=== PATIENT | female | born 1970 | race Caucasian/White ===

== ENCOUNTER → 2018-06-24 15:34 | Outpatient (CLI) | payer OTHER, SELFPAY ==
[2018-06-24 18:17] LABS: AST(SGOT) 9 U/L (15-37); Alanine Aminotransfer ALT/SGPT 19 U/L (13-56); Anion Gap 9 (5-15); BUN 11 mg/dL (7-18); BUN/Creat Ratio 12.6 RATIO (10-20); Calcium,Total 8.9 mg/dL (8.5-10.1); Chloride 104 mmol/L (98-107); Cholesterol 234 mg/dL (200); Creatinine, Serum 0.87 mg/dL (0.55-1.02); EST Glomerular Filtration Rate 73 mL/min (>60); Est Glom Filt Rate - Afr Amer 88 mL/min (>60); Glucose 119 mg/dL (74-106); High Density Lipoprotein 35 mg/dL; Potassium 3.6 mmol/L (3.5-5.1); Sodium Level 138 mmol/L (136-145); Triglycerides 276 mg/dL; Very Low Density Lipoprotein 55 mg/dL (5-40)
== END ==
PROVIDERS: Family Provider Family Medicine; PCP Family Medicine; Visit Provider Family Medicine
DX: E78.00 Pure hypercholesterolemia, unspecified (principal); I10 Essential (primary) hypertension
CPT/HCPCS: 36415; 80048; 80061; 84450; 84460

== ENCOUNTER → 2018-09-18 06:59 | Outpatient (CLI) | payer OTHER, SELFPAY ==
--- NOTE | 2018-09-18 07:04 | BI_ITS ---
MAMMOGRAPHY - BILATERAL SCREENING REASON FOR EXAM: Female, 48 years old. Routine annual screening examination. PERTINENT HISTORY: Non-contributory. TECHNIQUE: Digital bilateral breast avelina (3D mammographic acquisition) in the CC and MLO projections. 2-D mediolateral oblique (MLO) and craniocaudad (CC) views of both breasts were obtained. CAD: Full Field Digital Mammography with Computer Added Detection was performed. COMPARISON: Comparison is made with prior study dated August 29 2012. FINDINGS: Breast Composition: The breasts are heterogeneously dense, which may obscure small masses. There are no dominant masses or suspicious calcifications. Stable small benign-appearing axillary lymph nodes. No other significant abnormalities are identified. There has been no significant change since the prior study. BI/SCREENING MAMM (CAD), BILAT IMPRESSION: Stable bilateral screening mammogram. Yearly follow-up mammogram recommended. (A) ASSESSMENT CATEGORY: BIRADS Category 2: Benign. A letter regarding these results will be sent to the patient by the facility within 30 days. Approximately 10% of breast cancers are not detected by mammography. A normal mammogram should not delay biopsy of a clinically suspicious abnormality. [id number] Electronically Signed: Tapan Alves MD at 9:59 EST , Service support ,
== END ==
PROVIDERS: Family Provider Family Medicine; PCP Family Medicine; Referring Provider Family Medicine; Visit Provider Family Medicine
DX: Z12.31 Encounter for screening mammogram for malignant neoplasm of breast (principal)
CPT/HCPCS: 77063; 77067

== ENCOUNTER → 2018-09-20 12:01 | Outpatient (CLI) | payer OTHER, SELFPAY ==
[2018-09-24 16:32] LABS: HPV Reflexed? NOT INDICATED
== END ==
PROVIDERS: Family Provider Family Medicine; PCP Family Medicine; Referring Provider Family Medicine; Visit Provider Family Medicine
DX: Z12.4 Encounter for screening for malignant neoplasm of cervix (principal)
CPT/HCPCS: 88175; G0145

== ENCOUNTER → 2018-09-25 12:27 | Outpatient (CLI) | payer OTHER, SELFPAY ==
--- NOTE | 2018-09-25 12:32 | US_ITS ---
STUDY: ULTRASOUND OF THE FEMALE PELVIS - COMPLETE REASON FOR EXAM: Female, 48 years old. Bleeding LMP: 09/17/18 TECHNIQUE: Transabdominal and Transvaginal TECHNICAL QUALITY: Adequate. COMPARISON: None. FINDINGS: The uterus is anteverted and is in a midline position. The uterus measures 11.8 x 6.6 x 6.0 cm. Normal uterine cervix. The endometrium measures 5.0 mm in thickness, and is hyperechoic. There is no demonstrated endometrial mass, there is a trace amount of fluid within the endometrium.. There is no demonstrated myometrial mass. I.U.D. - The patient does not have an I.U.D. The right ovary is visualized. The right ovary measures 2.1 x 2.3 x 1.3 cm. There is a 1.3 cm cyst. There is no visualized right adnexal mass or complex lesion. There is normal arterial and normal venous vascularity. The left ovary is visualized. The left ovary measures 3.9 x 3.3 x 2.9 cm. There were 2 separate ovarian cysts, larger measures 2.7 cm, smaller 2.2 cm There is normal arterial and normal venous vascularity. There is no fluid in the cul-de-sac. The bladder is sonographically normal US/Transvaginal Non- IMPRESSION: Simple ovarian cysts Trace amount of fluid within the endometrium Electronically Signed: Babatunde Caro MD at 17:13 EST , Service support ,
--- NOTE | 2018-09-25 12:32 | US_ITS ---
STUDY: ULTRASOUND OF THE FEMALE PELVIS - COMPLETE REASON FOR EXAM: Female, 48 years old. Bleeding LMP: 09/17/18 TECHNIQUE: Transabdominal and Transvaginal TECHNICAL QUALITY: Adequate. COMPARISON: None. FINDINGS: The uterus is anteverted and is in a midline position. The uterus measures 11.8 x 6.6 x 6.0 cm. Normal uterine cervix. The endometrium measures 5.0 mm in thickness, and is hyperechoic. There is no demonstrated endometrial mass, there is a trace amount of fluid within the endometrium.. There is no demonstrated myometrial mass. I.U.D. - The patient does not have an I.U.D. The right ovary is visualized. The right ovary measures 2.1 x 2.3 x 1.3 cm. There is a 1.3 cm cyst. There is no visualized right adnexal mass or complex lesion. There is normal arterial and normal venous vascularity. The left ovary is visualized. The left ovary measures 3.9 x 3.3 x 2.9 cm. There were 2 separate ovarian cysts, larger measures 2.7 cm, smaller 2.2 cm There is normal arterial and normal venous vascularity. There is no fluid in the cul-de-sac. The bladder is sonographically normal US/Pelvic (Non ) IMPRESSION: Simple ovarian cysts Trace amount of fluid within the endometrium Electronically Signed: Babatunde Caro MD at 17:13 EST , Service support ,
== END ==
PROVIDERS: Family Provider Family Medicine; PCP Family Medicine; Referring Provider Family Medicine; Visit Provider Family Medicine
DX: N93.9 Abnormal uterine and vaginal bleeding, unspecified (principal)
CPT/HCPCS: 76830; 76856

== ENCOUNTER → 2019-12-31 09:44 | Outpatient (CLI) | payer OTHER, SELFPAY ==
[2016-04-10 19:39] VITALS: BMI 35.6
[2019-12-31 12:47] LABS: Anion Gap 7 (5-15); BUN 9 mg/dL (7-18); BUN/Creat Ratio 11.1 RATIO (10-20); Calcium,Total 8.9 mg/dL (8.5-10.1); Chloride 106 mmol/L (98-107); Cholesterol 203 mg/dL (200); Creatinine, Serum 0.81 mg/dL (0.55-1.02); EST Glomerular Filtration Rate 79 mL/min (>60); Est Glom Filt Rate - Afr Amer 95 mL/min (>60); Glucose 150 mg/dL (74-106); High Density Lipoprotein 36 mg/dL; Potassium 3.8 mmol/L (3.5-5.1); Sodium Level 139 mmol/L (136-145); Triglycerides 163 mg/dL; Very Low Density Lipoprotein 33 mg/dL (5-40)
== END ==
PROVIDERS: PCP Family Medicine; Referring Provider Family Medicine; Visit Provider Family Medicine
DX: I10 Essential (primary) hypertension (principal)
CPT/HCPCS: 36415; 80048; 80061

== ENCOUNTER → 2020-06-22 11:31 | Outpatient (CLI) | payer OTHER, SELFPAY ==
[2016-04-10 19:39] VITALS: BMI 35.6
[2020-06-22 15:32] LABS: Anion Gap 5 (5-15); BUN 12 mg/dL (7-18); BUN/Creat Ratio 14.1 RATIO (10-20); Calcium,Total 9.3 mg/dL (8.5-10.1); Chloride 106 mmol/L (98-107); Creatinine, Serum 0.85 mg/dL (0.55-1.02); EST Glomerular Filtration Rate 75 mL/min (>60); Est Glom Filt Rate - Afr Amer 90 mL/min (>60); Glucose 156 mg/dL (74-106); Sodium Level 136 mmol/L (136-145)
[2020-06-25 16:08] LABS: Age Gdln ACOG Testing 30-65 (.)
[2020-06-25 17:40] LABS: HPV APTIMA, High Risk Negative (Negative); HPV Reflexed? YES, CHARGE PATIENT
== END ==
PROVIDERS: PCP Family Medicine; Referring Provider Family Medicine; Visit Provider Family Medicine
DX: I10 Essential (primary) hypertension (principal); Z01.419 Encounter for gynecological examination (general) (routine) without abnormal findings
CPT/HCPCS: 36415; 80048; 87624; 88175; G0145

== ENCOUNTER → 2020-07-21 08:17 | Outpatient (CLI) | payer OTHER, SELFPAY ==
--- NOTE | 2020-07-21 08:20 | BI_ITS ---
MAMMOGRAPHY - BILATERAL SCREENING REASON FOR EXAM: Female, 50 years old. Routine annual screening examination. PERTINENT HISTORY: Non-contributory. TECHNIQUE: Digital bilateral breast valentina (3D mammographic acquisition) in the CC and MLO projections. 2-D mediolateral oblique (MLO) and craniocaudad (CC) views of both breasts were obtained. CAD: Full Field Digital Mammography with Computer Added Detection was performed. COMPARISON: Comparison is made with prior study dated 09/18/2018 and 08/29/2012. FINDINGS: Breast Composition: The breasts are heterogeneously dense, which may obscure small masses. There are no dominant masses or suspicious calcifications. Stable small benign-appearing bilateral axillary lymph nodes. No other significant abnormalities are identified. There has been no significant change since the prior study. BI/SCREEN MAMM (CAD) W/VALENTINA BILAT IMPRESSION: Stable bilateral screening mammogram. Yearly follow-up mammogram recommended. (A) ASSESSMENT CATEGORY: BIRADS Category 2: Benign. A letter regarding these results will be sent to the patient by the facility within 30 days. Approximately 10% of breast cancers are not detected by mammography. A normal mammogram should not delay biopsy of a clinically suspicious abnormality. [id number] Electronically Signed: Tapan Alves, at 10:09 EST , Service support ,
== END ==
PROVIDERS: PCP Family Medicine; Referring Provider Family Medicine; Visit Provider Family Medicine
DX: Z12.31 Encounter for screening mammogram for malignant neoplasm of breast (principal)
CPT/HCPCS: 77063; 77067

== ENCOUNTER → 2020-09-13 08:28 | Outpatient (CLI) | payer OTHER, SELFPAY ==
--- NOTE | 2020-09-13 08:32 | US_ITS ---
STUDY: ABDOMINAL ULTRASOUND - RIGHT UPPER QUADRANT REASON FOR VISIT: Female, 50 years old ruq pain TECHNIQUE: Ultrasound evaluation of the right upper quadrant was performed with real-time and static sanchez-scale imaging. TECHNICAL QUALITY: Adequate. COMPARISON: None. FINDINGS: Liver: The liver measures 16.4 cm. There is increased echogenicity consistent with fatty infiltration. The bile ducts are within normal limits. There is hepatic color flow. The direction of portal flow is hepatopetal. There is no demonstrated mass lesion. Gallbladder: Normal distended gallbladder. The gallbladder wall measures 3.0 mm. There is a negative sonographic Vera''s sign. There is no pericholecystic fluid. There are multiple echogenic structures within the gallbladder, consistent with multiple gallstones. There is a 1.6 cm stone in the neck of the gallbladder. Common Bile Duct (C.B.D.): The common bile duct measures 6 mm. Pancreas: Normal size of the head, body and tail of the pancreas. There is normal echogenicity of the pancreas. There is no demonstrated pancreatic mass or cyst. Right Kidney: Normal size of the right kidney. The right kidney measures 10.4 cm x 5.4 cm x 5.6 cm. Normal renal cortex. The right cortex measures 1.7 cm. There is no demonstrated renal mass or cyst. There is no right hydronephrosis. US/Abdomen Limited IMPRESSION: Multiple gallstones. Fatty infiltration of the liver. Electronically Signed: Tapan Alves MD at 10:10 EST , Service support ,
== END ==
PROVIDERS: PCP Family Medicine; Referring Provider Family Medicine; Visit Provider Family Medicine
DX: R10.9 Unspecified abdominal pain (principal)
CPT/HCPCS: 76705

== ENCOUNTER 2020-09-22 05:21 | Day surgery (SDC) | payer OTHER, SELFPAY ==
[2020-09-15 15:05] VITALS: BMI 36.6
--- NOTE | 2020-09-20 13:07 | EKG12_ITS ---
Test Reason : PREOP Blood Pressure : / mmHG Vent. Rate : 077 BPM Atrial Rate : 077 BPM P-R Int : 140 ms QRS Dur : 088 ms QT Int : 384 ms P-R-T Axes : 051 061 045 degrees QTc Int : 434 ms Normal sinus rhythm Normal ECG Confirmed by MEGAN FLYNN, LEYLA ([id number]), editorial project manager MATT BENJAMIN ([id number]) on 09/21/2020 8:15:06 AM Referred By: Reese Swann Confirmed By:LEYLA GUZMAN MD
[2020-09-20 14:31] LABS: Anion Gap 8 (5-15); BUN 10 mg/dL (7-18); BUN/Creat Ratio 10.8 RATIO (10-20); Calcium,Total 9.7 mg/dL (8.5-10.1); Chloride 104 mmol/L (98-107); Creatinine, Serum 0.93 mg/dL (0.55-1.02); EST Glomerular Filtration Rate 67 mL/min (>60); Est Glom Filt Rate - Afr Amer 82 mL/min (>60); Glucose 172 mg/dL (74-106); Sodium Level 137 mmol/L (136-145)
[2020-09-22] VITALS (9 sets, daily range): BP systolic 137–162; BP diastolic 81–95; PULSE 70–94; RESP 16–18; TEMP 36.4–37.7; O2SAT 92–99; BMI 36.7
[2020-09-22] MEDS: Lactated Ringers 1,000 ML 100 ML IV ×2 (06:00→08:30)
[2020-09-22 06:30] LABS: Internal QC Validated? YES +Cl - CLEAR BKGD; Pregnancy, Urine Negative Negative
--- NOTE | 2020-09-22 06:52 | PCM.HP.BLA ---
Problem List (1) Cholelithiasis with chronic cholecystitis Status: Chronic Qualifiers: History and Physical Date of Admission: 09/22/20 Intake Visit Reasons: Gall Stones/Ultrasound 09/13 [facility] Chief Complaint: Gallstones Mapping Specialist Required: No Is patient in pain?: No Allergies No Known Allergies Allergy (Verified 09/15/20 15:05) Medications lisinopril 10 mg-hydrochlorothiazide 12.5 mg tablet 1 tab PO DAILY 09/15/20 [History Confirmed 09/15/20] potassium chloride 10 mEq capsule,extended release 10 meq PO DAILY 09/15/20 [History Confirmed 09/15/20] [facility] Medical History (Updated 09/15/20 @ 15:[address] Reese Swann MD) Cholelithiasis with chronic cholecystitis (Chronic) Constipation (Acute) GERD (gastroesophageal reflux disease) (Acute) Gallstones (Acute) Hemorrhoids (Acute) History of back problems (Acute) Nausea and vomiting (Acute) RUQ pain (Acute) Hypertension (Chronic) Surgical History (Updated 09/15/20 @ 15:03 by Uyen June) No history of previous surgery (Acute) Family History (Updated 09/15/20 @ 15:04 by Uyen June) Daughter Asthma Uncle Colon cancer Sister Diabetes Social History (Updated 09/15/20 @ 15:[address] Reese Swann MD) Smoking Status: Never smoker alcohol intake: never substance use type: does not use HPI HPI HPI: LIANG QUIÑONES, is a 50 F who presents to the office today for surgical consultation regarding what was felt to be likely symptomatic gallbladder disease secondary to gallstones. The patient is referred by her primary care physician Dr. Chelsi Matson and a written copy of my surgical consult and recommendations will be returned to her. 50-year-old female. She was visiting family in [place] and ate typical food outside of her norm. This included some extra fatty and rich foods. She had an episode of right upper quadrant discomfort bloating nausea and then finally felt better when she vomited. She has had some lingering discomfort since that time. She went to see her primary care physician Dr. Chelsi Matson and concerns were over the possibility of gallbladder disease so on September 13, 2020 gallbladder ultrasound was obtained at the [facility]. Multiple gallstones were identified. There was felt to be a 1.6 cm stone in the neck of the gallbladder. No pericholecystic fluid. The common bile duct was normal at 6 mm. The patient's not had any previous abdominal surgery. No otherwise change in bowel habits. She works at home. She does have a child who attends [facility] HPI HPI: LIANG QUIÑONES, is a 50 F who presents to the office today for ROS General General: No weight change, appetite, fatigue, colon cancer, breast cancer or weakness HEENT HEENT: No difficulty swallowing, eye injury, eye surgery, swollen glands or hoarseness Endo Endocrine: No thyroid disease, diabetes mellitus, thyroid cancer, Hair loss, heat intolerance or cold intolerance Skin Skin: No rash or changing moles Breast Breast: No left breast lump, right breast lump, nipple discharge, breast pain, abnormal mammogram, abnormal US or breast enlargement Musc Musculoskeletal: Yes back problems; no arthritis, rheumatoid arthritis, gout or joint pain Cardio Cardiovascular: Yes high blood pressure; no murmur, pacemaker, heart disease, atrial fibrillation, heart attack, heart stent, palpitations, shortness of breat with exertion or chest pain Psych Psychiatric: No depression, anxiety or hearing voices Resp Respiratory: No shortness of breath, No sleep apnea, No cough, No COPD, No asthma, No emphysema, No wheezing Gastro Gastrointestinal: Yes abdominal pain, Yes nausea or vomiting, No diarrhea, Yes constipation, No blood in stool, Yes acid reflux, Yes hemorrhoids, No ulcers, Yes gallbladder problem, No black,tarry stools Rigoberto Hematologic: No blood thinners, No blood disorders, No bleeding, No anemia, No blood clots Neuro Neurologic: No system reviewed and no additional complaints, except as docu, No as per HPI, No abnormal walking, No abnormal hearing, No abnormal movements, No abnormal speech, No behavioral changes, No burning sensations, No confusion, No seizure-like activity, No unsteadiness, No dizziness, No localized weakness, No frequent falls, No headache(s), No lack of coordination, No loss of vision, No memory loss, No numbness, No other visual disturbances, No radiating pain, No restless legs, No sensory deficit, No fainting, No tingling, No tremor(s), No weakness, No other Exam Const General: cooperative, healthy appearing Nutritional Appearance: average body habitus Orientation: alert, awake [facility] Head: normal to inspection Chest Chest palpation & inspection: normal inspection of the chest Breast Palpation: No nipple discharge Resp Effort & Inspection: normal respiratory effort Auscultation: clear to auscultation bilaterally Cardio Rate: regular rate Rhythm: regular rhythm Heart Sounds: no murmurs GI Palpation: soft, no hepatosplenomegaly Musc Cervical Spine: normal cervical lordosis Neuro General: alert, awake Extrem General: no calf tenderness Psych Thought Process: normal Assessment & Plan Problems 1. Calculus of gallbladder with chronic cholecystitis without obstruction K80.10 Plan 50-year-old female with findings very much consistent with chronic cholecystitis cholelithiasis. I am recommending to her a laparoscopic cholecystectomy with selective cholangiography. I have discussed the technique, benefit, risk, alternatives. She has had an opportunity to ask and have questions answered. At this point recommend scheduling proceeding at her discretion. I very much appreciate the kind opportunity of assisting with her surgical care. Copy: Dr Chelsi Swann M.D., F.A.C.S. Coding Level of Care Code 09641 Diagnoses Calculus of gallbladder with chronic cholecystitis without obstruction K80.10 ??Cholelithiasis location: gallbladder ??Biliary obstruction: without biliary obstruction 09/15/20 1539 <Electronically signed by Reese Swann MD> Date I have re-examined the patient. There are no clinical changes since date of exam. Procedure Criteria Procedure Type: Elective COVID Risk Discussion: The surgeon/proceduralist and patient have discussed in detail the risk of exposure to and/or potential harm posed by the COVID-19 virus with having a surgery/procedure at this time versus the risk of delaying the surgery/procedure. It is not possible to know either the risk of delaying the surgery or procedure or chance of getting an infection with perfect accuracy, but a joint decision was made between the patient and the surgeon/proceduralist to proceed at this time with the scheduled surgery/procedure as indicated on the consent form.
--- NOTE | 2020-09-22 06:54 | DCINST_ITS ---
Discharge Diet: Light diet - advance as tolerated - if you have questions about your diet instructions, please talk to you doctor. Discharge Activity: May Not Drive - for 3-5 days or while taking narcotic pain medicine. May shower in (days): 1 Lifting Restrictions: 10 pounds Call your doctor if your incision/area has: Continuous Slow Oozing, Sudden Increased Bleeding, Increased Pain/ Swelling, Increased Redness, Foul Smelling Discharge Call your doctor if you observe: Fever of 101 or Higher Suture Line Care: Avoid Pulling/Pushing, Avoid Pinching/Bending Additional Dressing/Incision Instructions:: Change or remove dressing in 4 days. Leave steri-strips in place for 1 week. Allergies/Adverse Reactions: Allergies No Known Allergies Allergy (Verified 09/22/20 05:53) Medications to take at Discharge lisinopril 10 mg-hydrochlorothiazide 12.5 mg tablet 1 tab PO DAILY 09/15/20 potassium chloride 10 mEq capsule,extended release 10 meq PO DAILY 09/15/20 Primary Care Physician: Chelsi Matson MD [Primary Care Provider] - Test Results: Test results from this visit will be discussed in further detail at your follow- up appointment, if applicable. Please Follow Up With: Reese Swann MD - [phone] When: Call for appt. May be phone, virtual, or on-site
[2020-09-22] MEDS: Cefazolin 2 GM in 0.9% Normal Saline 100 ML IV (07:29)
--- NOTE | 2020-09-22 07:30 | RAD_ITS ---
STUDY: INTRAOPERATIVE CHOLANGIOGRAM. REASON FOR EXAM: Female, 50 years old. LAP ION WITH INTRAOPERATIVE CHOLANGIOGRAMS FLUOROSCOPY TIME (if supplied): ( 13.5 seconds ) minutes/seconds. A cine loop of 89 images were submitted. TECHNIQUE: Intraoperative cholangiogram was performed by the surgeon. Imaging was submitted. COMPARISON: None. FINDINGS: The visualized intrahepatic biliary ducts are unremarkable. The common bile duct is not dilated. No intraluminal filling defect is seen. Free flow of contrast is seen into the duodenum. RAD/Cholangiogram/ O R,Initial IMPRESSION: Unremarkable intraoperative cholangiogram. Electronically Signed: Tapan Alves MD at 9:14 EST , Service support ,
--- NOTE | 2020-09-22 07:30 | GALL_PTH ---
PATIENT: LIANG QUIÑONES [place] [facility] [id number] AGE/SX: 50/F ROOM: RE09/22/[address]: Dr. Reese Swann MD : 1970 BED: DIS: 09/22/2020 SPEC #: [id number] RECD: 09/22/20 09:13 STATUS: RUBY TRINIDAD #: [id number] CANDIS: 09/22/20 07:[address]: Reese Swann DEPT: SURGICAL PATHOLOGY RECD BY: Alesia Mendez ENTERED: 09/22/20 13:32 SP TYPE: SANYA MARCANO DR: Dr. Chelsi Matson MD Tissues: Gallbladder, NOS Procedures: Surgery Specimen Level III HEADER OPERATION: Laparoscopic cholecystectomy with IOC PRE-OP DIAGNOSIS: Cholelithiasis with chronic cholecystitis TISSUE SUBMITTED: Gallbladder MICROSCOPIC DIAGNOSIS Gallbladder, cholecystectomy: Chronic cholecystitis and cholelithiasis. AM:charmaine 09/23/2020 MICROSCOPIC DESCRIPTION Slides are reviewed. GROSS DESCRIPTION Received is one container labeled with the patient's name and designated gallbladder. The specimen consists of a gallbladder measuring 10.6 x 3 x 3 cm. The external surface is smooth and glistening. Focally, it is granular, hemorrhagic and contains cautery artifact. The lumen of the gallbladder contains yellow-green mucoid bile and a single, ovoid crystalline black-green calculus measuring 3.5 cm in greatest dimension. The mucosa is bile-stained and without any mass lesions. The gallbladder wall averages 0.4 cm in thickness and is free of mass lesions. Gizzard Skin Remover sections of the gallbladder and the cystic duct at margin of resection are submitted in one cassette. / AM:charmaine 09/22/20 TC:3 CPT: 48607
[2020-09-22] MEDS: Bupivacaine Mpf 0.5% 30 ML VIAL (08:20)
--- NOTE | 2020-09-22 08:34 | OP.PCM_ITS ---
Problem List (1) Cholelithiasis with chronic cholecystitis Status: Chronic Qualifiers: Report of Operation Date of Procedure: 09/22/20 Pre-Operative Diagnosis: Chronic cholecystitis cholelithiasis Post-Operative Diagnosis: Same Surgery/Procedure Performed:: Laparoscopic cholecystectomy with cholangiograms Description of Surgical Findings:: Timeout and informed consent was obtained. 50-year-old female was taken operating place upon the table underwent general endotracheal intubation anesthesia. Ancef 2 g given intravenously preoperatively. The abdomen st erilely prepped and draped. 0.5% Marcaine was used as local anesthetic. Throughout the procedure total 30 cc was used. Skin sites were preanesthetized. A vertical infraumbilical incision was created holding sutures of 0 Vicryl placed varies needle inserted saline drop test performed the abdomen was insufflated with CO2 to a pressure of 10 mmHg pressure. 12 mm trocar inserted. 10 mm laparoscope inserted. Inspection revealed somewhat enlarged uterus. There were adhesions of omentum to the gallbladder. No other superficial abnormalities. There is some fatty change of the liver. 5 mm trochars were placed in the mid abdomen epigastric area and right upper quadrant. The gallbladder was distracted electrocautery was used to transect the omentum free from the mid section of the gallbladder. Blunt dissection was tedious elucidate the infundibular area. The gallbladder is rather adherent to the proper hepatic duct. This was dissected free. Hemolock clips were used for hemostasis. The critical view was achieved. The cystic duct cystic artery identified. The liver plate identified. A Hem-o-phi clip was placed on the cystic duct incision made in the cystic duct and through a 14-gauge Angiocath a cholangiogram catheter was inserted. Fluoroscopically control cholangiograms were obtained demonstrating normal ductal anatomy. The cholangiogram catheter was removed hemolock clip was placed on the cystic duct stump prior to transecting it. The cystic artery was clipped proximally and distally with a hemolock clip. The gallbladder was tediously dissected free from the liver bed with the hook cautery electrocautery device. The gallbladder was released placed in a retrieval bag there was no stone or bile spillage. Liver bed area was inspected additional electrocautery was used and I placed a piece of fibrillar in the base. The right upper quadrant was irrigated and aspirated free of excess fluid. The gallbladder was then grasped with the umbilicus. The abdomen was allowed to deflate through an antiviral valve. The gallbladder was removed there is a very large stones of the fascial incision had to be enlarged for removal. The fascia at the umbilicus was approximated with 2 [id number] sutures of 0 Vicryl. Skin edges approximated opted for Monocryl subdermal stitches. Steri- Strips Telfa OpSite dressings applied. Sponge and instrument and needle counts were reported to the surgeon to be correct. Blood loss minimal. Specimens gallbladder. Drains none. Blood loss minimal. The patient was taken to the recovery area in satisfactory edition without apparent complication. Reese Swann M.D., F.A.C.S. Type of Anesthesia:: General Anesthesiologist: Casey Boyer
[2020-09-22] MEDS: HYDROcodone Bitartrate/Apap 5/325 Tablet PO (11:10)
== END 2020-09-22 12:31 | disposition home or self-care (01) ==
LOC: SDC 05:21 → AC 05:21
PROVIDERS: Anesthesiology; PCP Family Medicine; Referring Provider Surgery; Visit Provider Surgery
PROC: (CPT 47610; principal; 2020-09-22 07:20)
DX: K80.10 Calculus of gallbladder with chronic cholecystitis without obstruction (principal); I10 Essential (primary) hypertension
CPT/HCPCS: 47563; 36415; 74300; 76000; 80048; 81025; 87426; 88304; 93005; C9803; J7120; J2405

== ENCOUNTER → 2021-08-10 15:14 | Outpatient (CLI) | payer OTHER, SELFPAY | PROVIDERS: PCP Family Medicine; Visit Provider Family Medicine | DX: U07.1 COVID-19 (principal) | CPT/HCPCS: 87635; U0005; U0003 ==

== ENCOUNTER → 2022-04-05 | Outpatient (CLI) | payer OTHER, SELFPAY ==
[2022-04-05 12:53] LABS: AST(SGOT) 10 U/L (15-37); Alanine Aminotransfer ALT/SGPT 20 U/L (13-56); Anion Gap 7 (5-15); BUN 11 mg/dL (7-18); BUN/Creat Ratio 14.2 RATIO (10-20); Calcium,Total 9.5 mg/dL (8.5-10.1); Chloride 103 mmol/L (98-107); Cholesterol 139 mg/dL (200); Creatinine, Serum 0.77 mg/dL (0.55-1.02); EST Glomerular Filtration Rate 83 mL/min (>60); Est Glom Filt Rate - Afr Amer 100 mL/min (>60); Glucose 256 mg/dL (74-106); High Density Lipoprotein 36 mg/dL; Potassium 3.8 mmol/L (3.5-5.1); Sodium Level 136 mmol/L (136-145); Triglycerides 279 mg/dL; Very Low Density Lipoprotein 56 mg/dL (5-40)
[2022-04-05 13:35] LABS: Microalbumin,Random Urine 44.6 mg/L (NO RANGE EST.); Microalbumin:Creatinine Ratio 15.8 mg/g CRE (<30 mg/g CRE)
== END | disposition home or self-care (01) ==
LOC: MFPLAB 10:42
PROVIDERS: PCP Family Medicine; Referring Provider Family Medicine; Visit Provider Family Medicine
DX: I10 Essential (primary) hypertension (principal); E78.00 Pure hypercholesterolemia, unspecified
CPT/HCPCS: 36415; 80048; 80061; 82043; 82570; 84450; 84460

== ENCOUNTER → 2022-04-24 | Outpatient (CLI) | payer OTHER, SELFPAY ==
--- NOTE | 2022-04-24 12:30 | BI_ITS ---
MAMMOGRAPHY - BILATERAL SCREENING REASON FOR EXAM: Female, 51 years old. Routine annual screening examination. PERTINENT HISTORY: Non-contributory. TECHNIQUE: Digital bilateral breast valentina (3D mammographic acquisition) in the CC and MLO projections. 2-D mediolateral oblique (MLO) and craniocaudad (CC) views of both breasts were obtained. CAD: Full Field Digital Mammography with Computer Added Detection was performed. COMPARISON: Comparison is made with prior study dated 07/21/2020 and 09/18/2018. FINDINGS: Breast Composition: The breasts are heterogeneously dense, which may obscure small masses. There are no dominant masses or suspicious calcifications. Stable benign-appearing bilateral axillary lymph nodes. No other significant abnormalities are identified. There has been no significant change since the prior study. BI/SCRN MAMM (CAD)W/VALENTINA BILAT IMPRESSION: Stable bilateral screening mammogram. Yearly follow-up mammogram recommended. (A) ASSESSMENT CATEGORY: BIRADS Category 2: Benign. A letter regarding these results will be sent to the patient by the facility within 30 days. Approximately 10% of breast cancers are not detected by mammography. A normal mammogram should not delay biopsy of a clinically suspicious abnormality. [id number] Electronically Signed: Tapan Alves MD at 13:37 EDT ,
== END | disposition home or self-care (01) ==
LOC: OPBI 12:29
PROVIDERS: PCP Family Medicine; Visit Provider Family Medicine
DX: Z12.31 Encounter for screening mammogram for malignant neoplasm of breast (principal)
CPT/HCPCS: 77063; 77067

== ENCOUNTER → 2022-09-20 | Outpatient (CLI) | payer OTHER, SELFPAY | END | disposition home or self-care (01) | LOC: LABSPEC 10:27 | PROVIDERS: PCP Family Medicine; Visit Provider Family Medicine | DX: S39.012A Strain of muscle, fascia and tendon of lower back, initial encounter (principal) | CPT/HCPCS: 87077; 87086; 87088; 87186 ==

== ENCOUNTER 2023-03-12 17:30 | Outpatient (RCR) | payer SELFPAY | END 2023-03-12 23:59 | LOC: NS 17:30 | PROVIDERS: PCP Family Medicine | DX: Z71.3 Dietary counseling and surveillance (principal); E11.9 Type 2 diabetes mellitus without complications ==

== ENCOUNTER → 2023-04-27 | Outpatient (CLI) | payer OTHER, SELFPAY ==
[2023-05-03 11:09] LABS: HPV APTIMA, High Risk Negative (Negative)
[2023-05-03 21:44] LABS: HPV Reflexed? YES, CHARGE PATIENT
== END | disposition home or self-care (01) ==
PROVIDERS: PCP Family Medicine; Visit Provider Family Medicine
DX: Z12.4 Encounter for screening for malignant neoplasm of cervix (principal)
CPT/HCPCS: 87624; 88175; G0145

== ENCOUNTER → 2023-07-03 | Outpatient (CLI) | payer OTHER, SELFPAY ==
--- NOTE | 2023-07-03 07:43 | BI_ITS ---
MAMMOGRAPHY - BILATERAL SCREENING REASON FOR EXAM: Female, 53 years old. Routine annual screening examination. PERTINENT HISTORY: Non-contributory. TECHNIQUE: Digital bilateral breast valentina (3D mammographic acquisition) in the CC and MLO projections. 2-D mediolateral oblique (MLO) and craniocaudad (CC) views of both breasts were obtained. CAD: Full Field Digital Mammography with Computer Added Detection was performed. COMPARISON: Comparison is made with prior study dated April 24, 2022 and July 21, 2020. FINDINGS: Breast Composition: The breasts are extremely dense, which lowers the sensitivity of mammography. There is a 3.2 cm x 2.7 cm well-defined nodular density in the upper lateral aspect of the right breast. Correlation with ultrasound is recommended. Stable small benign-appearing bilateral axillary lymph nodes. No other significant abnormalities are identified. BI/SCRN MAMM (CAD)W/VALENTINA BILAT IMPRESSION: Well-defined nodule in the left breast as described. Targeted correlation with ultrasound is recommended for further evaluation. ASSESSMENT CATEGORY: BIRADS Category 0: Incomplete. Need additional imaging evaluation. A letter regarding these results will be sent to the patient by the facility within 30 days. Approximately 10% of breast cancers are not detected by mammography. A normal mammogram should not delay biopsy of a clinically suspicious abnormality. [id number] Electronically Signed: Tapan Alves MD at 11:02 EST ,
== END | disposition home or self-care (01) ==
LOC: OPBI 07:43
PROVIDERS: PCP Family Medicine; Visit Provider Family Medicine
DX: Z12.31 Encounter for screening mammogram for malignant neoplasm of breast (principal)
CPT/HCPCS: 77063; 77067

== ENCOUNTER → 2023-07-12 | Outpatient (CLI) | payer OTHER, SELFPAY ==
--- NOTE | 2023-07-12 09:13 | US_ITS ---
STUDY: ULTRASOUND BREAST - RIGHT REASON FOR EXAM: Female, 53 years old. Abnormal screening mammogram. TECHNIQUE: Axial and longitudinal images of the RIGHT breast were performed with a high resolution ultrasound transducer. # OF IMAGES: 76 COMPARISON: Comparison is made with prior mammogram dated July 03, 2023. FINDINGS: RIGHT Breast: The lateral half of the right breast as well as the upper medial portion of the right breast was examined with ultrasound. Dense fibroglandular tissue. Several cysts are seen. The largest measures 1.3 cm x 1.3 cm x 0.6 cm. At the 9:00 position breast at 6 cm from the nipple, there is an irregular hypoechoic density with posterior shadowing. The margins are ill-defined. Biopsy is recommended. US/Breast Limited Unilateral IMPRESSION: Dense fibroglandular tissue. Small cysts are seen. Irregular hypodensity with some shadowing at the 9:00 position of the breast at 6 cm from the nipple. Biopsy is recommended. ASSESSMENT CATEGORY: BIRADS Category 4: Suspicious - Biopsy Should Be Considered. A letter regarding these results will be sent to the patient by the facility within 30 days. Electronically Signed: Tapan Alves MD at 8:45 EST ,
== END | disposition home or self-care (01) ==
PROVIDERS: PCP Family Medicine; Referring Provider Family Medicine; Visit Provider Family Medicine
DX: N63.11 Unspecified lump in the right breast, upper outer quadrant (principal)
CPT/HCPCS: 76642

== ENCOUNTER → 2023-08-09 | Outpatient (CLI) | payer OTHER, SELFPAY ==
--- NOTE | 2023-08-09 08:05 | MRI_ITS ---
STUDY: BILATERAL BREAST MR WITHOUT AND WITH CONTRAST REASON FOR EXAM: Female, 53 years old. Workup of irregular hypoechoic density in right breast by ultrasound. TECHNIQUE: Multi-sequence multi-echo imaging of both breasts was performed with a dedicated breast coil. T1-weighted and T2-weighted images were performed before the administration of contrast. T1-weighted images were also performed after the intravenous administration of 17 mL of Clariscan contrast. COMPARISON: Bilateral mammogram dated July 06, 2023 and right breast ultrasound dated July 12, 2023. FINDINGS: RIGHT BREAST: Heterogeneously dense fibroglandular tissue with moderate to marked background enhancement which may obscure small masses. No abnormal enhancing masses or areas of non-mass enhancement in the right breast. Specifically, no dominant enhancing mass at the 9:00 position of the right breast 6 cm from the nipple. LEFT BREAST: Heterogeneously dense fibroglandular tissue with moderate to marked background enhancement which may obscure small masses. No abnormal enhancing masses or areas of non-mass enhancement in the left breast. No enlarged or abnormal lymph nodes. No abnormality in the visualized regions of the chest or liver. MRI/Breast Bilateral W/O and W IMPRESSION: Heterogeneously dense fibroglandular tissue with moderate to marked background enhancement which may obscure small masses. No dominant enhancing mass at the 9:00 position of the right breast. Given the ultrasound findings, a six-month follow-up right breast ultrasound with particular attention to the 9:00 position 6 cm from the nipple is recommended. CATEGORY: BIRADS Category 3: Probably Benign - Short-Interval Follow-up Suggested. A letter regarding these results will be sent to the patient by the facility within 30 days. Electronically Signed: Prince Patten MD at 13:08 EST ,
[2023-08-09 11:00] LABS: CREATININE FINGERSTICK < 1.0 mg/dL (0.55-1.02); EGFR FINGERSTICK > 60.0000 mL/min (>60)
== END | disposition home or self-care (01) ==
PROVIDERS: PCP Family Medicine; Referring Provider Surgery; Visit Provider Surgery
DX: R92.8 Other abnormal and inconclusive findings on diagnostic imaging of breast (principal)
CPT/HCPCS: 77049; A9575; A4216; C8908

== ENCOUNTER → 2023-12-11 | Outpatient (CLI) | payer OTHER, SELFPAY ==
[2023-12-11 18:08] LABS: Protein, Urine (Random) 14.1 mg/dL (<11.9); Protein:Creat Ratio 82 mg/g CRE (0-200)
[2023-12-11 18:23] LABS: Hemoglobin A1c 6.8 % (3.8-5.6)
[2023-12-11 18:33] LABS: Anion Gap 7 (5-15); BUN 11 mg/dL (7-18); BUN/Creat Ratio 12.4 RATIO (10-20); Calcium,Total 9.7 mg/dL (8.5-10.1); Chloride 106 mmol/L (98-107); Cholesterol 170 mg/dL (200); Creatinine, Serum 0.89 mg/dL (0.55-1.02); EST Glomerular Filtration Rate 70 mL/min (>60); Est Glom Filt Rate - Afr Amer 85 mL/min (>60); Glucose 118 mg/dL (74-106); High Density Lipoprotein 41 mg/dL; Potassium 3.8 mmol/L (3.5-5.1); Sodium Level 138 mmol/L (136-145); Triglycerides 163 mg/dL; Very Low Density Lipoprotein 33 mg/dL (5-40)
== END | disposition home or self-care (01) ==
LOC: MFPLAB 15:27
PROVIDERS: PCP Family Medicine; Visit Provider Family Medicine
DX: E66.01 Morbid (severe) obesity due to excess calories (principal); E11.59 Type 2 diabetes mellitus with other circulatory complications; E11.69 Type 2 diabetes mellitus with other specified complication
CPT/HCPCS: 36415; 80048; 80061; 82570; 83036; 84156

== ENCOUNTER → 2024-02-28 | Outpatient (CLI) | payer OTHER, SELFPAY ==
--- NOTE | 2024-02-28 08:01 | US_ITS ---
STUDY: ULTRASOUND BREAST - RIGHT REASON FOR EXAM: Female, 53 years old. Six-month follow-up right breast ultrasound. TECHNIQUE: Axial and longitudinal images of the RIGHT breast were performed with a high resolution ultrasound transducer. # OF IMAGES: 49 COMPARISON: Comparison is made with prior mammogram dated July 03, 2023 and prior MRI of the breast dated August 09, 2023. FINDINGS: RIGHT Breast: The upper outer quadrant of the breast was examined with ultrasound. There is a 1.6 cm x 1.5 cm x 0.8 cm cyst at the 10:00 position of the breast at 4 cm from the nipple. Once again, focal area of the decreased attenuation within the posterior shadowing and possible calcifications at the 9:00 position of the breast at 6 cm from nipple. Biopsy recommended . US/Breast Limited Unilateral IMPRESSION: 1.6 cm x 1.5 cm x 0.8 cm cyst at the 10:00 position in the breast at 4 cm from nipple. Persistent heterogeneous appearance at 10:00 position breast is 6 cm from nipple. Biopsy recommended. ASSESSMENT CATEGORY: BIRADS Category 4: Suspicious - Biopsy Should Be Considered. A letter regarding these results will be sent to the patient by the facility within 30 days. Electronically Signed: Tapan Alves MD at 15:23 EDT ,
== END | disposition home or self-care (01) ==
PROVIDERS: PCP Family Medicine; Referring Provider Surgery; Visit Provider Surgery
DX: R92.8 Other abnormal and inconclusive findings on diagnostic imaging of breast (principal)
CPT/HCPCS: 76642

== ENCOUNTER → 2024-03-27 | Outpatient (CLI) | payer OTHER, SELFPAY ==
--- NOTE | 2024-03-27 11:59 | US_ITS ---
STUDY: ULTRASOUND BREAST - RIGHT REASON FOR EXAM: Female, 53 years old. Patient was scheduled for biopsy. TECHNIQUE: Axial and longitudinal images of the RIGHT breast were performed with a high resolution ultrasound transducer. # OF IMAGES: 7 COMPARISON: None. FINDINGS: RIGHT Breast: The lateral aspect of the right breast was examined with ultrasound. Heterogeneously dense fibroglandular tissue. No suspicious nodules seen for biopsy at this time. US/Breast Limited Unilateral IMPRESSION: No suspicious nodule seen at this time for biopsy. ASSESSMENT CATEGORY: BIRADS Category 2: Benign. A letter regarding these results will be sent to the patient by the facility within 30 days. Electronically Signed: Tapan Alves MD at 14:17 EDT ,
== END | disposition home or self-care (01) ==
PROVIDERS: PCP Family Medicine; Referring Provider Surgery; Visit Provider Surgery
DX: R92.8 Other abnormal and inconclusive findings on diagnostic imaging of breast (principal)
CPT/HCPCS: 76642

== ENCOUNTER → 2024-10-24 | Outpatient (CLI) | payer OTHER, SELFPAY ==
[2024-10-24 14:17] LABS: Cholesterol 174 mg/dL (<=200); High Density Lipoprotein 39 mg/dL; Low Density Lipoprotein Calc. 78 mg/dL; Triglycerides 289 mg/dL; Very Low Density Lipoprotein 58 mg/dL (5-40); cholesterol:hdl ratio screen 4.51
[2024-10-24 14:18] LABS: AST(SGOT) 16 U/L (<=31); Alanine Aminotransfer ALT/SGPT 12 U/L (<=34); Alkaline Phosphatase 91 U/L (35-104); Anion Gap 13 (5-15); BUN 15 mg/dL (4-19); BUN/Creat Ratio 20.1 RATIO (10-20); Bilirubin, Direct < 0.08 mg/dL (0.00-0.30); Calcium,Total 9.2 mg/dL (7.6-11.0); Carbon Dioxide 21.2 mmol/L (21.0-32.0); Chloride 102 mmol/L (98-108); Creatinine, Serum 0.74 mg/dL (0.70-1.20); EST Glomerular Filtration Rate 94 (>60); Globulin 2.8 g/dL (2.2-4.2); Glucose 160 mg/dL (70-99); Potassium 3.7 mmol/L (3.3-5.1); Protein, Total 6.8 g/dL (5.9-8.4); Sodium Level 136 mmol/L (133-145); Total Bilirubin 0.19 mg/dL (0.00-1.30)
== END | disposition home or self-care (01) ==
LOC: MFPLAB 10:55
PROVIDERS: PCP Family Medicine; Referring Provider Family Medicine; Visit Provider Family Medicine
DX: E66.01 Morbid (severe) obesity due to excess calories (principal); E11.69 Type 2 diabetes mellitus with other specified complication; E11.59 Type 2 diabetes mellitus with other circulatory complications
CPT/HCPCS: 36415; 80048; 80061; 80076; 82570; 84156; 84443

== ENCOUNTER → 2025-03-05 | Outpatient (CLI) | payer OTHER, SELFPAY ==
[2025-03-05 10:19] LABS: Hematocrit 30.3 % (37-47); Hemoglobin 9.3 g/dL (12.0-15.0); Immature Granulocytes Count 0.010 X10^3/uL (0.0-0.0); Mean Corp Hgb Conc 30.7 g/dL (32-36); Mean Corpuscular Volume 72.3 fL (81-99); Mean Platelet Vol. 10.6 fl (6.2-12.0); NRBC Flagged by Analyzer 0 % (0-5); Platelet Count 258 K/mm3 (150-450); RBC Distribution Width CV 17.2 % (11.6-14.6); RBC Distribution Width SD 44.9 fl (35.1-43.9); Red Blood Count 4.19 M/mm3 (4.2-5.4); White Blood Count 5.0 K/mm3 (4.4-11.0)
[2025-03-05 11:23] LABS: Creatinine, Urine (random) 349.00 mg/dL (28.00-217.00); Microalbumin,Random Urine 22.3 mg/L (<20 mg/L)
[2025-03-05 11:30] LABS: AST(SGOT) 16 U/L (<=31); Alanine Aminotransfer ALT/SGPT 9 U/L (<=34); Albumin, Serum 3.8 g/dL (3.5-5.0); Alkaline Phosphatase 84 U/L (35-104); Anion Gap 12 (5-15); BUN 7 mg/dL (4-19); BUN/Creat Ratio 9.3 RATIO (10-20); Calcium,Total 9.0 mg/dL (7.6-11.0); Carbon Dioxide 22.0 mmol/L (21.0-32.0); Chloride 104 mmol/L (98-108); Cholesterol 131 mg/dL (<=200); Globulin 2.6 g/dL (2.2-4.2); Glucose 160 mg/dL (70-99); Low Density Lipoprotein Calc. 31 mg/dL; Magnesium 1.8 mg/dL (1.5-2.2); Potassium 3.4 mmol/L (3.3-5.1); Triglycerides 307 mg/dL; Very Low Density Lipoprotein 61 mg/dL (5-40); cholesterol:hdl ratio screen 3.38
[2025-03-06 12:26] LABS: Iron 20 ug/dL (50-170); Iron Binding Capacity,Total 412 ug/dL (250-450); Iron Binding Capacity,Unsat 392 ug/dL (228-428); Vitamin B12 332 pg/mL (180-914)
[2025-03-06 16:09] LABS: Thyroglobulin, Serum Qt. 16.8 ng/mL (1.5-38.5)
[2025-03-10 10:05] LABS: Ferritin 7 ng/mL (22-378)
== END | disposition home or self-care (01) ==
LOC: MFPLAB 09:15
PROVIDERS: PCP Family Medicine; Referring Provider Family Medicine; Visit Provider Family Medicine
DX: D64.9 Anemia, unspecified (principal); E11.59 Type 2 diabetes mellitus with other circulatory complications; E11.69 Type 2 diabetes mellitus with other specified complication; R19.7 Diarrhea, unspecified; E04.1 Nontoxic single thyroid nodule
CPT/HCPCS: 36415; 80053; 80061; 82043; 82570; 82607; 82728; 83036; 83540; 83550; 83735; 84432; 84439; 84443; 85025; 86376; 86800

== ENCOUNTER → 2025-03-25 | Outpatient (CLI) | payer OTHER, SELFPAY ==
[2025-03-25 16:14] LABS: Anion Gap 11 (5-15); BUN 8 mg/dL (4-19); BUN/Creat Ratio 11.7 RATIO (10-20); Calcium,Total 9.3 mg/dL (7.6-11.0); Carbon Dioxide 23.3 mmol/L (21.0-32.0); Chloride 104 mmol/L (98-108); Ferritin 24 ng/mL (22-378); Glucose 137 mg/dL (70-99); Iron 55 ug/dL (50-170); Potassium 3.9 mmol/L (3.3-5.1); Vitamin B12 350 pg/mL (180-914)
[2025-03-30 01:07] LABS: Pancreatic Elastase, Fecal > 800 (>200)
== END | disposition home or self-care (01) ==
LOC: MFPLAB 14:14
PROVIDERS: PCP Family Medicine; Visit Provider Family Medicine
DX: D64.9 Anemia, unspecified (principal); E11.59 Type 2 diabetes mellitus with other circulatory complications
CPT/HCPCS: 36415; 80048; 82607; 82653; 82728; 83540

== ENCOUNTER → 2025-03-26 | Outpatient (CLI) | payer OTHER, SELFPAY ==
--- NOTE | 2025-03-26 12:14 | US_ITS ---
PROCEDURE: THYROID 03/26/2025 REASON FOR EXAM: NODULE TECHNIQUE: THYROID COMPARISON: None FINDINGS: Right thyroid lobe size: 4.9 cm x 1.7 cm x 1.4 cm Left thyroid lobe size: 4.8 cm x 1.7 cm 1.4 cm Isthmus: 0.3 cm Background parenchymal echotexture is heterogeneous Nodules: There is a 4 mm x 3 mm x 3 mm cyst in the upper pole of the right lobe. A similar-appearing cyst measuring 0.7 cm x 0.7 cm 0.4 cm seen in the midportion. TI-RADS category 1 3 subcentimeter cysts are seen in the left lobe. The largest measures 8 mm x 6 mm x 4 mm. US/Thyroid IMPRESSION: Bilateral thyroid cysts. TI-RADS category: 1 RECOMMENDATION: Based on most suspicious nodule. Nodule size = largest diameter Only evaluate nodule if =>5 mm. Growth > 20% in 2 dimensions = worsening. Follow up to 4 nodules. Recommend biopsy for no more than 2 nodules. Reading Location: [place] [id number]
--- OUTSIDE RECORDS SUMMARY | 2025-03-26 19:22 | XMS RPT_ITS | CCD ---
Author Organization [facility] Care Team Providers Care Oil Treater Name Role Phone Dr. Chelsi Matson Primary Care Provider Dr. Chelsi Matson Referring Provider Dr. Alejandro Solano Attending Provider Chelsi Matson Primary Care Provider Dr. Chelsi Matson MD Primary Care Provider Dr. Chelsi Matson MD Attending Provider Dr. Chelsi Matson MD Referring Provider CHELSI MATSON Primary Care Unavailable MARK MALAGON Attending Unavailable TESTRARITO CHOI Referring Unavailable GOLMARK DAVENPORT Attending Unavailable TESTRITO ORANTES Referring Unavailable CHELSI MATSON Primary Care Unavailable MRAK MALAGON Attending Unavailable TESTRITO ORANTES Referring Unavailable CHELSI MATSON Primary Care Unavailable Dr. Tyrell Parisi MD Primary Care Provider Dr. Tyrell Parisi MD Attending Provider Dr. Tyrell Parisi MD Referring Provider Tyrell Parisi Attending Unavailable Tyrell Parisi Primary Care Unavailable Alejandro Solano Attending Unavailable Alejandro Solano Referring Unavailable Chelsi Matson Primary Care Unavailable Chelsi Matson Primary Care Unavailable Chelsi Matson Attending Unavailable Chelsi Matson Referring Unavailable Tyrell Parisi Primary Care Unavailable Tyrell Parisi Attending Unavailable Tyrell Parisi Referring Unavailable Alejandro Solano Referring Unavailable Chelsi Matson Primary Care Unavailable Alejandro Solano Attending Unavailable Tyrell Parisi Primary Care Unavailable Tyrell Parisi Attending Unavailable Tyrell Parisi Referring Unavailable Medications Current Medications Medication Drug Class(es) Dates Sig (Normalized) Sig (Original) atorvastatin 20 mg oral tablet (10 sources) HMG-CoA Reductase Inhibitor Start: 11-05-2023 take 1 tablet by mouth once daily at bedtime atorvastatin (LIPITOR) 20 mg tablet Take 20 mg by mouth daily at bedtime. 11/05/2023 Active Start: 07-16-2023 take 1 tablet by ankita th once daily Atorvastatin 10 mg tablet Active 10 mg PO DAILY July 16, 2023 1:00am azelastine hydrochloride 0.137 mg/actuat metered dose nasal spray (5 sources) Histamine-1 Receptor Antagonist Start: 12-30-2023 take 2 spray(s) nasal route twice daily as needed for congestion azelastine 0.1% nasal spray INSTILL 2 SPRAY(S) INTO BOTH NOSTRILS TWICE DAILY FOR 7 DAYS NEEDED FOR CONGESTION AND RUNNY NOSE 12/30/2023 Active cetirizine hydrochloride 10 mg oral tablet (5 sources) Histamine-1 Receptor Antagonist Start: 12-30-2023 take 1 tablet by mouth once daily as needed cetirizine (ZYRTEC) 10 mg tablet Take 10 mg by mouth once daily as needed for cold/allergy symptoms. 12/30/2023 Active hydroCHLOROthiazide 12.5 mg / lisinopril 10 mg oral tablet (16 sources) Thiazide Diuretic, Angiotensin Converting Enzyme Inhibitor Start: 11-02-2023 take 10-12.5 mg by mouth once lisinopril-hydr oCHLOROthiazide (ZESTORETIC) 10-12.5 mg per tablet Take 1 tablet by mouth every afternoon. 11/02/2023 Active Start: 09-15-2020 Lisinopril-Hyd rochlorothiazide 10-12.5 mg tablet Active 1 {tbl} PO DAILY September 15, 2020 1:00am Start: 09-15-2020 take 1 tablet by ankita th once daily Lisinopril-Hydrochlorothiazide Active 1 TABLET PO DAILY September 15, 2020 1:00am 24 hr metFORMIN hydrochloride 500 mg extended release oral tablet (5 sources) Biguanide Start: 01-29-2024 take 1 tablet by mouth once daily at bedtime metFORMIN ER (GLUCOPHAGE XR) 500 mg 24 hr tablet Take 1,000 mg by mouth daily at bedtime. 01/29/2024 Active OZEMPIC 0.25 mg or 0.5 mg (2 mg/3 mL) pen (5 sources) Start: 01-10-2024 inject 0.5 mg by subcutaneous injection every week OZEMPIC 0.25 mg or 0.5 mg (2 mg/3 mL) pen Inject 0.5 mg subcutaneously one time a week. 01/10/2024 Active Start: 01-10-2024 inject 0.5 mg by sub cutaneous injection every week OZEMPIC 0.25 mg or 0.5 mg (2 mg/3 mL) pen Inject 0.5 mg subcutaneously one time a week. 0 01/10/2024 Active potassium chloride 10 meq extended release oral tablet (16 sources) Start: 11-05-2023 take 1 tablet by mouth once potassium chloride (K-TAB) 10 mEq tablet Take 1 tablet by mouth every afternoon. 11/05/2023 Active Start: 09-15-2020 take 1 capsule by [facility] once daily Potassium Chloride 10 mEq capsule, extended release Active 10 meq PO DAILY September 15, 2020 1:00am Problems Active Problems Problem Classification Problem Date Documented Date Episodic/Chronic Biliary tract disease (11 sources) Calculus of gallbladder with cholecystitis; Translations: [Calculus of gallbladder with chronic cholecystitis without obstruction] 09-22-2020 Episodic Deficiency and other anemia (1 source) Anemia, unspecified; Translations: [Anemia, unspecified] Onset: 03-10-2025 Episodic Other and unspecified benign neoplasm (1 source) Neuroma; Translations: [Benign neoplasm of peripheral nerves and autonomic nervous system, unspecified] 02-05-2024 Episodic Other connective tissue disease (8 sources) Dysfunction of posterior tibial tendon; Translations: [Posterior tibial tendinitis, unspecified leg] Onset: 03-31-2024 02-05-2024 Episodic Other nutritional; endocrine; and metabolic disorders (1 source) Morbid (severe) obesity due to excess calories; Translations: [Morbid (severe) obesity due to excess calories] Onset: 11-04-2024 Chronic Thyroid disorders (1 source) Nontoxic single thyroid nodule; Translations: [Nontoxic single thyroid nodule] Onset: 03-25-2025 Chronic Past or Other Problems Problem Classification Problem Date Documented Da te Episodic/Chronic Other connective tissue disease (1 source) Posterior tibial tendinitis, unspecified leg; Translations: [Posterior tibial tendon dysfunction] Onset: 03-31-2024 Episodic Other screening for suspected conditions (not mental disorders or infectious disease) (8 sources) Mammography abnormal; Translations: [Other abnormal and inconclusive findings on diagnostic imaging of breast] Onset: 04-17-2024 07-16-2023 Episodic Results Test Name Value Interpretation Reference Range Facility Basic Metabolic Profile (BMP )on 03-25-2025 BUN/CRE 11.7 RATIO Normal 10-20 [facility] Comment on above: Order Comment: Order Date: 03/06/25Order Info: 666-08 - BMPOrder Info: 2497-11 - Order Date: 03/09/25Order Info: 2275-11 - RONALD Performed By: #### L 501.0900, L500.2500, L500.4100, L501.9520, L500.3400 #### [facility] [address], [address] Calcium [Mass/Vol] 9.3 mg/dL Normal 7.6-11.0 [facility] Comment on above: Order Comment: Order Date: 03/06/25Order Info: 06 - BMPOrder Info: 2497-11 - FEOrder Date: 03/09/25Order Info: 2275-11 - RONALD Performed By: #### L 501.0900, L500.2500, L500.4100, L501.9520, L500.3400 #### [facility] [address] [place], [address] Chloride [Moles/Vol] 104 mmol/L Normal 98-108 [facility] Comment on above: Order Comment: Order Date: 03/06/25Order Info: 06- - BMPOrder Info: 2497-11 - FEOrder Date: 03/09/25Order Info: 2275-11 - RONALD Performed By: #### L 501.0900, L500.2500, L500.4100, L501.9520, L500.3400 #### [facility] [address] [place], [address] CO2 [Moles/Vol] 23.3 mmol/L Normal 21.0-32.0 [facility] Comment on above: Order Comment: Order Date: 03/06/25Order Info: 0667- - BMPOrder Info: 2497-11Order Date: 03/09/25Order Info: 2275-11 - RONALD Performed By: #### L 501.0900, L500.2500, L500.4100, L501.9520, L500.3400 #### [facility] [address] [place], [address] Creatinine [Mass/Vol] 0.69 mg/dL Low 0.70-1.20 [facility] Comment on above: Order Comment: Order Date: 03/06/25Order Info: 06- - BMPOrder Info: 2497-11Order Date: 03/09/25Order Info: 2275-11 - RONALD Performed By: #### L 501.0900, L500.2500, L500.4100, L501.9520, L500.3400 #### [facility] [address] [place], [address] GAP 11 Normal 5-15 [facility] Comment on above: Order Comment: Order Date: 03/06/25Order Info: 0667- - BMPOrder Info: 2497-11Order Date: 03/09/25Order Info: 2275-11 - RONALD Performed By: #### L 501.0900, L500.2500, L500.4100, L501.9520, L500.3400 #### [facility] [address] [place], [address] GFR/1.73 sq M.predicted among non-blacks MDRD (S/P/Bld) [Vol rate/Area] 102 mL/min/{1.73_m2} Normal >60 [facility] Comment on above: Order Comment: Order Date: 03/06/25Order Info: 666-08 - BMPOrder Info: 2497-11 - FEOrder Date: 03/09/25Order Info: 2275-11 - RONALD Result Comment: mL/m in/1.73m2 CKD-EPI Creatinine Equation (2020) Performed By: #### L 501.0900, L500.2500, L500.4100, L501.9520, L500.3400 #### [facility] [address] [place], [address] Glucose [Mass/Vol] 137 mg/dL High 70-99 [facility] Comment on above: Order Comment: Order Date: 03/06/25Order Info: 666-08 - BMPOrder Info: 2497-11 - FEOrder Date: 03/09/25Order Info: 2275-11 - RONALD Performed By: #### L 501.0900, L500.2500, L500.4100, L501.9520, L500.3400 #### [facility] [address] [place], [address] Potassium [Moles/Vol] 3.9 mmol/L Normal 3.3-5.1 [facility] Comment on above: Order Comment: Order Date: 03/06/25Order Info: 666-08 - BMPOrder Info: 2497-11 - FEOrder Date: 03/09/25Order Info: 2275-11 - RONALD Performed By: #### L 501.0900, L500.2500, L500.4100, L501.9520, L500.3400 #### [facility] [address] [place], [address] Sodium [Moles/Vol] 138 mmol/L Normal 133-145 [facility] Comment on above: Order Comment: Order Date: 03/06/25Order Info: 666-08 - BMPOrder Info: 2497-11 - FEOrder Date: 03/09/25Order Info: 2275-11 - RONALD Performed By: #### L 501.0900, L500.2500, L500.4100, L501.9520, L500.3400 #### [facility] [address] [place], [address] Urea nitrogen [Mass/Vol] 8 mg/dL Normal 4-19 [facility] Comment on above: Order Comment: Order Date: 03/06/25Order Info: 0667-1 - BMPOrder Info: 2498 - FEOrder Date: 03/09/25Order Info: 2275-4 - RONALD Performed By: #### L 501.0900, L500.2500, L500.4100, L501.9520, L500.3400 #### [facility] [address] [place], [address] Ferritinon 03-25-2025 Ferritin [Mass/Vol] 24 ng/mL Normal 22-378 [facility] Comment on above: Order Comment: Order Date: 03/06/25 Order Info: 0667- - BMP Order Info: 2497-11 - FE Order Date: 03/09/25 Order Info: 2275-11 - RONALD Performed By: #### L 503.6550 #### [facility] [address] [place], [address] Ironon 03-25-2025 Iron [Mass/Vol] 55 ug/dL Normal 50-170 [facility] Comment on above: Order Comment: Order Date: 03/06/25Order Info: 0667-1 - BMPOrder Info: 2497-11 - FEOrder Date: 03/09/25Order Info: 2275-11 - RONALD Performed By: #### L 501.0900, L500.2500, L500.4100, L501.9520, L500.3400 #### [facility] [address] [place], [address] Vitamin B12on 03-25-2025 Cobalamin (Vitamin B12) [Mass/Vol] 350 pg/mL Normal 180-914 [facility] Comment on above: Order Comment: Order Date: 03/06/25 Order Info: 0667-1 - BMP Order Info: 2498 - Order Date: 03/09/25 Order Info: 2276-4 - RONALD Performed By: #### L 503.0106 #### [facility] [address] [place], [address] Ferritinon 03-10-2025 Ferritin [Mass/Vol] 7 ng/mL Low 22-378 [facility] Comment on above: Order Comment: Order Date: 03/06/25 Order Info: 0667-1 - BMP Order Info: 24903-16 Order Date: 03/09/25 Order Info: 2276-4 - RONALD Performed By: #### L 503.6550 #### [facility] [address] [place], [address] CNTHERAPYon 03-06-2025 CNTHERAPY OT/PT/Speech Visit (PTWS) TAMARA QUIÑONES ([id number]) 1970 F Date Time Provider Department 03/06/25 10:30 AM MARK MALAGNO Date Time Provider Department [place] 03/06/2025 10:30 AM [id number]-IQUAKSMARK MALAGON [facility] Reason for Visit: PT Discharge [752] Primary Visit Diagnosis:Posterior tibial tendon dysfunction [M76.829] Allergies As of Date: 03/06/2025 (No Known Allergies) Date Reviewed: 02/05/2024 Reviewed by: Helene Miller, LEILANI - Fully Assessed Prescriptions as of 03/06/2025 - atorvastatin (LIPITOR) 20 mg tablet Take 20 mg by mouth daily at bedtime. - azelastine 0.1% nasal spray INSTILL 2 SPRAY(S) INTO BOTH NOSTRILS TWICE DAILY FOR 7 DAYS NEEDED FOR CONGESTION AND RUNNY NOSE - cetirizine (ZYRTEC) 10 mg tablet Take 10 mg by mouth once daily as needed for cold/allergy symptoms. - lisinopril-hydroCHLO ROthiazide (ZESTORETIC) 10-12.5 mg per tablet Take 1 tablet by mouth every afternoon. - metFORMIN ER (GLUCOPHAGE XR) 500 mg 24 hr tablet Take 1,000 mg by mouth daily at bedtime. - potassium chloride (K-TAB) 10 mEq tablet Take 1 tablet by mouth every afternoon. - OZEMPIC 0.25 mg or 0.5 mg (2 mg/3 mL) pen Inject 0.5 mg subcutaneously one time a week. Letter Text Normal [facility] Iron+Iron Binding Capacityon 03-06-2025 Iron [Mass/Vol] 20 ug/dL Low 50-170 [facility] Comment on above: Order Comment: Order Date: 03/06/25 Order Info: 0667-1 - BMP Order Info: 24903-16 - FE Order Date: 03/09/25 Order Info: 2276-4 - RONALD Performed By: #### L 503.6550 #### [facility] [address] [facility] [id number] IRON SATURATION 5.0 Low 13-59 [facility] Comment on above: Order Comment: Order Date: 03/06/25 Order Info: 0667-1 - BMP Order Info: 2498 - FE Order Date: 03/09/25 Order Info: 22764 - RONALD Performed By: #### L 503.6550 #### [facility] [address] [place], [address] TIBC 412 ug/dL Normal 250-450 [facility] Comment on above: Order Comment: Order Date: 03/06/25 Order Info: 0667-1 - BMP Order Info: 249- - FE Order Date: 03/09/25 Order Info: 2276-4 - RONALD Performed By: #### L 503.6550 #### [facility] [address] [place], [address] UIBC 392 ug/dL Normal 228-428 [facility] Comment on above: Order Comment: Order Date: 03/06/25 Order Info: 0667-1 - BMP Order Info: 2498-4 - FE Order Date: 03/09/25 Order Info: 2276-4 - RONALD Performed By: #### L 503.6550 #### [facility] [address] [facility] [id number] Thyroglobulin w/Anti-TG ABon 03-06-2025 Anti-TG AB < 1.0 Normal 0.0-0.9 [facility] Comment on above: Result Comment: Thyr oglobulin Antibody measured by Tommie Chaplin Methodology It should be noted that the presence of thyroglobulin antibodies may not be pathogenic nor diagnostic, especially at very low levels. The assay business law teacher has found that four percent of individuals without evidence of thyroid disease or autoimmunity will have positive TgAb levels up to 4 IU/mL. Performed By: #### L 503.6550 #### [facility] [address] [facility] [address] THYROGLOB QUANT 16.8 ng/mL Normal 1.5-38.5 [facility] Comment on above: Result Comment: Acco rding to the National Academy of Clinical Biochemistry, the reference interval for Thyroglobulin (TG) should be related to euthyroid patients and not for patients who underwent thyroidectomy. TG reference intervals for these patients depend on the residual mass of the thyroid tissue left after surgery. Establishing a post-operative baseline is recommended. The assay limit of quantitation is 0.1 ng/mL Thyroglobulin measured by Tommie Chaplin Immunometric Assay Performed By: #### L 503.6550 #### [facility] [address] [facility] [id number] Thyroid Peroxidase ABon 02-11 THYR PEROX AB < 9 Normal 0-34 [facility] Comment on above: Result Comment: Perf ormed at: [facility] [id number] Employee Development Specialist: Julio Bonner PhD, Phone: [phone] Performed By: #### L 503.6550 #### [facility] [place] [id number] Vitamin B12on 03-06-2025 Cobalamin (Vitamin B12) [Mass/Vol] 332 pg/mL Normal 180-914 [facility] Comment on above: Order Comment: NONI Crisostomo ADD B12 IBC TO BLOOD DRAWN 03/05/25 PER Order Date: 03/05/25 Order Info: 0786-1 - CMP Order Info: 36906-9 - LIPID Order Info: 60846-7 - MG Order Info: 3016-3 - TSH Order Info: 3024-7 - T4F Performed By: #### L 503.0106, L503.6030, L3300.6900, L3300.6820, L503.6550, L502.0250 #### [facility] [address] [place], [place], [address] Absolute lymphocyte countOrd ered By: Tyrell Parisi on 03-05-2025 Lymphocytes Auto (Unsp spec) [#/Vol] 1.38 10*3/uL 0.83-4.51 [facility] Absolute neutrophil countOrd ered By: Tyrell Parisi on 03-05-2025 Neutrophils (Bld) [#/Vol] 3.2 10*3/uL 2.0-7.7 [facility] Anion gap in Serum or Plasma Ordered By: Tyrell Parisi on 03-05-2025 Anion gap [Moles/Vol] 12 mmol/L 5-15 [facility] Automated lymphocyte count a s percentage of total leukocytesOrdered By: Tyrell Parisi on 03-05-2025 Lymphocytes/100 WBC Auto (Unsp spec) 27.4 % 19-41 [facility] BUN/creatinine ratioOrdered By: Tyrell Parisi on 03-05-2025 Urea nitrogen/Creatinine [Mass ratio] 9.3 mg/mg Low 10-20 [facility] Basophil percentageOrdered B y: Tyrell Parisi on 03-05-2025 Basophils/100 WBC (Bld) 0.4 % 0-1 [facility] Bilirubin, totalOrdered By: Tyrell Parisi on 03-05-2025 Bilirubin [Mass/Vol] 0.26 mg/dL 0.00-1.30 [facility] CBC W/Diff, Automatedon 07-2 Absolute Lymph 1.38 X10 3/uL Normal 0.83-4.51 [facility] Comment on above: Order Comment: Order Date: 03/06/25 Order Info: 666-08 - BMP Order Info: 2497-11 Order Date: 03/09/25 Order Info: 2275-11 - RONALD Performed By: #### L 503.6550 #### [facility] [address] [place], [address] Absolute Neut 3.2 X10 3/uL Normal 2.0-7.7 [facility] Comment on above: Order Comment: Order Date: 03/06/25 Order Info: 666-08 - BMP Order Info: 2497-11 Order Date: 03/09/25 Order Info: 2275-11 - RONALD Performed By: #### L 503.6550 #### [facility] [address] [place], [address] Basophils/100 WBC (Bld) 0.4 % Normal 0-1 [facility] Comment on above: Order Comment: Order Date: 03/06/25 Order Info: 666-08 - BMP Order Info: 2497-11 Order Date: 03/09/25 Order Info: 2275-11 - RONALD Performed By: #### L 503.6550 #### [facility] [address] [place], [address] Eosinophils/100 WBC (Bld) 1.4 % Normal 0-5 [facility] Comment on above: Order Comment: Order Date: 03/06/25 Order Info: 666-08 - BMP Order Info: 2497-11 Order Date: 03/09/25 Order Info: 2275-11 - RONALD Performed By: #### L 503.6550 #### [facility] [address] [place], [address] Erythrocyte distribution width (RBC) [Ratio] 17.2 % High 11.6-14.6 [facility] Comment on above: Order Comment: Order Date: 03/06/25 Order Info: 666-08 - BMP Order Info: 2497-11 Order Date: 03/09/25 Order Info: 2275-11 - RONALD Performed By: #### L 503.6550 #### [facility] [address] [place], [address] (530) Hematocrit (Bld) [Volume fraction] 30.3 % Low 37-47 [facility] Comment on above: Order Comment: Order Date: 03/06/25 Order Info: 666- - BMP Order Info: 2497-11 Order Date: 03/09/25 Order Info: 2275-11 - RONALD Performed By: #### L 503.6550 #### [facility] [address] [place], [place], [address] (990) Hemoglobin (Bld) [Mass/Vol] 9.3 g/dL Low 12.0-15.0 [facility] Comment on above: Order Comment: Order Date: 03/06/25 Order Info: 666-08 - BMP Order Info: 2497-11 Order Date: 03/09/25 Order Info: 2275-11 - RONALD Performed By: #### L 503.6550 #### [facility] [address] [place], [place], [address] (927) IG% 0.200 Normal 0.0-0.9 [facility] Comment on above: Order Comment: Order Date: 03/06/25 Order Info: 0667- - BMP Order Info: 2497-11 Order Date: 03/09/25 Order Info: 2275-11 - RONALD Result Comment: IG% - Immature Granulocytes (promyelocytes, myelocytes and metamyelocytes) > 1% indicates that a LEFT SHIFT is Present. Performed By: #### L 503.6550 #### [facility] [address] [place], [address] (900) Lymphocytes/100 WBC (Bld) 27.4 % Normal 19-41 [facility] Comment on above: Order Comment: Order Date: 03/06/25 Order Info: 666-08 - BMP Order Info: 2497-11 Order Date: 03/09/25 Order Info: 2275-11 - RONALD Performed By: #### L 503.6550 #### [facility] [address] [place], [place], [address] (490) MCH (RBC) [Entitic mass] 22.2 pg Low 27.0-32.0 [facility] Comment on above: Order Comment: Order Date: 03/06/25 Order Info: 666-08 - BMP Order Info: 2497-11 Order Date: 03/09/25 Order Info: 2275-11 - RONALD Performed By: #### L 503.6550 #### [facility] [address] [place], [place], [address] (439) MCHC (RBC) [Mass/Vol] 30.7 g/dL Low 32-36 [facility] Comment on above: Order Comment: Order Date: 03/06/25 Order Info: 666-08 - BMP Order Info: 2497-11 Order Date: 03/09/25 Order Info: 2275-11 - RONALD Performed By: #### L 503.6550 #### [facility] [address] [place], [place], [address] [phone] MCV (RBC) [Entitic vol] 72.3 fL Low 81-99 [facility] Comment on above: Order Comment: Order Date: 03/06/25 Order Info: 666-08 - BMP Order Info: 2497-11 Order Date: 03/09/25 Order Info: 2275-11 - RONALD Performed By: #### L 503.6550 #### [facility] [address] [facility] [place], [address] Monocytes/100 WBC (Bld) 6.7 % Normal 0-10 [facility] Comment on above: Order Comment: Order Date: 03/06/25 Order Info: 666-08 - BMP Order Info: 2497-11 Order Date: 03/09/25 Order Info: 2275-11 - RONALD Performed By: #### L 503.6550 #### [facility] [address] [place], [place], [address] (660) Neutrophils/100 WBC (Bld) 63.9 % Normal 47-70 [facility] Comment on above: Order Comment: Order Date: 03/06/25 Order Info: 666-08 - BMP Order Info: 2497-11 Order Date: 03/09/25 Order Info: 2275-11 - RONALD Performed By: #### L 503.6550 #### [facility] [address] [place], [place], [address] Nucleated RBC (Bld) [#/Vol] 0 10*3/uL Normal 0-5 [facility] Comment on above: Order Comment: Order Date: 03/06/25 Order Info: 666-08 - BMP Order Info: 2497-11 Order Date: 03/09/25 Order Info: 2275-11 - RONALD Performed By: #### L 503.6550 #### [facility] [address] [place], [place], [address] [phone] Platelet mean volume (Bld) [Entitic vol] 10.6 fL Normal 6.2-12.0 [facility] Comment on above: Order Comment: Order Date: 03/06/25 Order Info: 666-08 - BMP Order Info: 2497-11 Order Date: 03/09/25 Order Info: 2275-11 - RONALD Performed By: #### L 503.6550 #### [facility] [address] [place], [address] Platelets (Bld) [#/Vol] 258 10*3/uL Normal 150-450 [facility] Comment on above: Order Comment: Order Date: 03/06/25 Order Info: 0667- - BMP Order Info: 2497-11 Order Date: 03/09/25 Order Info: 2275-11 - RONALD Performed By: #### L 503.6550 #### [facility] [address] [place], [place], [address] RBC (Bld) [#/Vol] 4.19 10*6/uL Low 4.2-5.4 [facility] Comment on above: Order Comment: Order Date: 03/06/25 Order Info: 0667-1 - BMP Order Info: 2497-11 Order Date: 03/09/25 Order Info: 2275-11 - RONALD Performed By: #### L 503.6550 #### [facility] [address] [place], [place], [address] RDW SD 44.9 fl High 35.1-43.9 [facility] Comment on above: Order Comment: Order Date: 03/06/25 Order Info: 0667-1 - BMP Order Info: 2497-11 Order Date: 03/09/25 Order Info: 2275-11 - RONALD Performed By: #### L 503.6550 #### [facility] [address] [facility] [place], [address] WBC (Bld) [#/Vol] 5.0 10*3/uL Normal 4.4-11.0 [facility] Comment on above: Order Comment: Order Date: 03/06/25 Order Info: 0667-1 - BMP Order Info: 2497-11 Order Date: 03/09/25 Order Info: 2275-11 - RONALD Performed By: #### L [id number] #### [facility] [address] [place], [address] Calculated very low density lipoprotein (VLDL) cholesterol measurementOrdered By: Tyrell Parisi on 03-05-2025 Calculated very low density lipoprotein (VLDL) cholesterol measurement 61 mg/dL High 5-40 [facility] Carbon dioxide, total [Moles /volume] in Central venous bloodOrdered By: Tyrell Parisi on 03-05-2025 CO2 [Moles/Vol] 22.0 mmol/L 21.0-32.0 [facility] Chloride assayOrdered By: Ibeth Parisi on 07-24-2025 Chloride [Moles/Vol] 104 mmol/L 98-108 [facility] Comprehensive Metabolic Prof ilon 03-05-2025 Albumin [Mass/Vol] 3.8 g/dL Normal 3.5-5.0 [facility] Comment on above: Order Comment: Order Date: 03/06/25 Order Info: 666- - BMP Order Info: 2497-11 Order Date: 03/09/25 Order Info: 2275-11 - RONALD Performed By: #### L [id number] #### [facility] [address] [place], [place], [address] Albumin/Globulin [Mass ratio] 1.4 {ratio} Normal 0.9-2.4 [facility] Comment on above: Order Comment: Order Date: 03/06/25 Order Info: 666-08 - BMP Order Info: 2497-11 Order Date: 03/09/25 Order Info: 2275-11 - RONALD Performed By: #### L [id number] #### [facility] [address] [place], [place], [address] ALK PHOS 84 U/L Normal 35-104 [facility] Comment on above: Order Comment: Order Date: 03/06/25 Order Info: 666-08 - BMP Order Info: 2497-11 Order Date: 03/09/25 Order Info: 2275-11 - RONALD Performed By: #### L [id number] #### [facility] [address] [place], [place], [address] ALT [Catalytic activity/Vol] 9 U/L Normal <=34 [facility] Comment on above: Order Comment: Order Date: 03/06/25 Order Info: 666-08 - BMP Order Info: 2497-11 Order Date: 03/09/25 Order Info: 2275-11 - RONALD Performed By: #### L [id number] #### [facility] [address] [place], [place], [address] AST [Catalytic activity/Vol] 16 U/L Normal <=31 [facility] Comment on above: Order Comment: Order Date: 03/06/25 Order Info: 666-08 - BMP Order Info: 2497-11 Order Date: 03/09/25 Order Info: 2275-11 - RONALD Performed By: #### L [id number] #### [facility] [address] [place], [address] Bilirubin [Mass/Vol] 0.26 mg/dL Normal 0.00-1.30 [facility] Comment on above: Order Comment: Order Date: 03/06/25 Order Info: 666- - BMP Order Info: 2497-11 Order Date: 03/09/25 Order Info: 2275-11 - RONALD Performed By: #### L [id number] #### [facility] [address] [place], [place], [address] (617) BUN/CRE 9.3 RATIO Low 10-20 [facility] Comment on above: Order Comment: Order Date: 03/06/25 Order Info: 666-08 - BMP Order Info: 2497-11 Order Date: 03/09/25 Order Info: 2275-11 - RONALD Performed By: #### L [id number] #### [facility] [address] [place], [address] Calcium [Mass/Vol] 9.0 mg/dL Normal 7.6-11.0 [facility] Comment on above: Order Comment: Order Date: 03/06/25 Order Info: 666-08 - BMP Order Info: 2497-11 Order Date: 03/09/25 Order Info: 2275-11 - RONALD Performed By: #### L [id number] #### [facility] [address] [place], [address] Chloride [Moles/Vol] 104 mmol/L Normal 98-108 [facility] Comment on above: Order Comment: Order Date: 03/06/25 Order Info: 666- - BMP Order Info: 2497-11 Order Date: 03/09/25 Order Info: 2275-11 - RONALD Performed By: #### L [id number] #### [facility] [address] [place], [place], [address] CO2 [Moles/Vol] 22.0 mmol/L Normal 21.0-32.0 [facility] Comment on above: Order Comment: Order Date: 03/06/25 Order Info: 666-08 - BMP Order Info: 2497-11 Order Date: 03/09/25 Order Info: 2275-11 - RONALD Performed By: #### L [id number] #### [facility] [address] [place], [place], [address] Creatinine [Mass/Vol] 0.74 mg/dL Normal 0.70-1.20 [facility] Comment on above: Order Comment: Order Date: 03/06/25 Order Info: 666-08 - BMP Order Info: 2497-11 Order Date: 03/09/25 Order Info: 2275-11 - RONALD Performed By: #### L [id number] #### [facility] [address] [place], [place], [address] GAP 12 Normal 5-15 [facility] Comment on above: Order Comment: Order Date: 03/06/25 Order Info: 0667- - BMP Order Info: 2497-11 Order Date: 03/09/25 Order Info: 2275-11 - RONALD Performed By: #### L [id number] #### [facility] [address] [place], [place], [address] GFR/1.73 sq M.predicted among non-blacks MDRD (S/P/Bld) [Vol rate/Area] 95 mL/min/{1.73_m2} Normal >60 [facility] Comment on above: Order Comment: Order Date: 03/06/25 Order Info: 0667- - BMP Order Info: 2497-11 Order Date: 03/09/25 Order Info: 2275-11 - RONALD Result Comment: mL/m in/1.73m2 CKD-EPI Creatinine Equation (2020) Performed By: #### L [id number] #### [facility] [address] [place], [address] Globulin (S) [Mass/Vol] 2.6 g/dL Normal 2.2-4.2 [facility] Comment on above: Order Comment: Order Date: 03/06/25 Order Info: 666-08 - BMP Order Info: 2497-11 Order Date: 03/09/25 Order Info: 2275-11 - RONALD Performed By: #### L [id number] #### [facility] [address] [place], [place], [address] Glucose [Mass/Vol] 160 mg/dL High 70-99 [facility] Comment on above: Order Comment: Order Date: 03/06/25 Order Info: 666-08 - BMP Order Info: 2497-11 Order Date: 03/09/25 Order Info: 2275-11 - RONALD Performed By: #### L [id number] #### [facility] [address] [place], [place], [address] Potassium [Moles/Vol] 3.4 mmol/L Normal 3.3-5.1 [facility] Comment on above: Order Comment: Order Date: 03/06/25 Order Info: 666-08 - BMP Order Info: 2497-11 Order Date: 03/09/25 Order Info: 2275-11 - RONALD Performed By: #### L [id number] #### [facility] [address] [place], [address] Sodium [Moles/Vol] 139 mmol/L Normal 133-145 [facility] Comment on above: Order Comment: Order Date: 03/06/25 Order Info: 0667- - BMP Order Info: 2497-11 Order Date: 03/09/25 Order Info: 4 - RONALD Performed By: #### L [id number] #### [facility] [address] [place], [place], [address] T PROT 6.4 g/dL Normal 5.9-8.4 [facility] Comment on above: Order Comment: Order Date: 03/06/25 Order Info: 0667-1 - BMP Order Info: 2497-11 Order Date: 03/09/25 Order Info: 2275-11 - RONALD Performed By: #### L [id number] #### [facility] [address] [place], [address] Urea nitrogen [Mass/Vol] 7 mg/dL Normal 4-19 [facility] Comment on above: Order Comment: Order Date: 03/06/25 Order Info: 0667-1 - BMP Order Info: 2497-11 Order Date: 03/09/25 Order Info: 2275-11 - RONALD Performed By: #### L [id number] #### [facility] [address] [facility] [place], [address] Eosinophil percentageOrdered By: Tyrell Parisi on 03-05-2025 Eosinophils/100 WBC (Bld) 1.4 % 0-5 [facility] Erythrocyte distribution wid th ratioOrdered By: Tyrell Parisi on 03-05-2025 Erythrocyte distribution width (RBC) [Ratio] 17.2 % High 11.6-14.6 [facility] Erythrocyte distribution wid th standard deviationOrdered By: Tyrell Parisi on 03-05-2025 Erythrocyte distribution width (RBC) [Ratio] 44.9 fl High 35.1-43.9 [facility] Glomerular filtration rate ( GFR) estimation/1.73 sq m using serum, plasma, or whole bOrdered By: Tyrell Parisi on 03-05-2025 GFR/1.73 sq M.predicted among non-blacks MDRD (S/P/Bld) [Vol rate/Area] 95 mL/min/{1.73_m2} >60 [facility] Comment on above: mL/min/1.73m2 CKD-EP I Creatinine Equation (2020) Hematocrit Auto (Bld) [Volum e fraction]Ordered By: Tyrell Parisi on 03-05-2025 Hematocrit (Bld) [Volume fraction] 30.3 % Low 37-47 [facility] Hemoglobin A1con 03-05-2025 HbA1c (Bld) [Mass fraction] 6.7 % High <=5.6 [facility] Comment on above: Order Comment: Order Date: 03/06/25 Order Info: 0667-1 - BMP Order Info: 2498-4 - FE Order Date: 03/09/25 Order Info: 2276-4 - RONALD Result Comment: Norm al < 5.7 % Prediabetic 5.7 - 6.4 % Diabetic >or= 6.5 % Please note range changes. Performed By: #### L [id number] #### [facility] [place], [address] Hemoglobin A1c percentageOrd ered By: Tyrell Parisi on 03-05-2025 HbA1c (Bld) [Mass fraction] 6.7 % High <5.7 [facility] Comment on above: Normal < 5.7 % Predi abetic 5.7 - 6.4 % Diabetic >or= 6.5 % Please note range changes. Hemoglobin measurementOrdere d By: Tyrell Parisi on 03-05-2025 Hemoglobin (Bld) [Mass/Vol] 9.3 g/dL Low 12.0-15.0 [facility] Immature granulocytes/100 WB C Auto (Bld)Ordered By: Tyrell Parisi on 03-05-2025 Immature granulocytes/100 WBC (Bld) 0.200 % 0.0-0.9 [facility] Comment on above: IG% - Immature Granu locytes (promyelocytes, myelocytes and metamyelocytes) > 1% indicates that a LEFT SHIFT is Present. Iron measurement (mass/mass) Ordered By: Tyrell Parisi on 03-05-2025 Iron (Unsp spec) [Mass/Mass] 20 ug/dL Low 50-170 [facility] LDL calc ser/plasOrdered By: Tyrell Parisi on 03-05-2025 Cholesterol in LDL [Mass/Vol] 31 mg/dL [facility] Comment on above: Tqobkzkttl=543-843 m g/dL & Higher Jype=595 mg/dL or greater Laboratory - Chemistry and C hemistry - challengeOrdered By: Tyrell Parisi on 03-05-2025 AST [Catalytic activity/Vol] 16 U/L <32 [facility] Lipid Profileon 03-05-2025 CHOL:HDL 3.38 Normal [facility] Comment on above: Order Comment: Order Date: 03/06/25 Order Info: 06-1 - BMP Order Info: 2497-11 Order Date: 03/09/25 Order Info: 2275-11 - RONALD Performed By: #### L [id number] #### [facility] [address] [place], [place], [address] (027) Cholesterol [Mass/Vol] 131 mg/dL Normal <=200 [facility] Comment on above: Order Comment: Order Date: 03/06/25 Order Info: 666- - BMP Order Info: 2497-11 Order Date: 03/09/25 Order Info: 2275-11 - RONALD Result Comment: Chol esterol level, Desirable <200 mg/dL Borderline high cholesterol 200-239 mg/dL High cholesterol >=240 mg/dL Recommendations of the NCEP Adult Treatment Panel for the following risk-cutoff thresholds for the [place] population. Performed By: #### L [id number] #### [facility] [address] [place], [place], [address] (627) Cholesterol in HDL [Mass/Vol] 39 mg/dL Low [facility] Comment on above: Order Comment: Order Date: 03/06/25 Order Info: 0667-1 - BMP Order Info: 2497-11 Order Date: 03/09/25 Order Info: 2275-11 - RONALD Result Comment: Vero onal Cholesterol Education Program (NCEP) guidelines: <40 mg/dL: Low HDL-cholesterol (major risk factor for CHD) >= 60 mg/dL: High HDL-cholesterol (negative risk factor for CHD) HDL-cholesterol is affected by a number of factors, e.g. smoking, exercise, hormones, sex and age. Performed By: #### L [id number] #### [facility] [address] [place], [place], [address] (322) Cholesterol in LDL [Mass/Vol] 31 mg/dL Normal [facility] Comment on above: Order Comment: Order Date: 03/06/25 Order Info: 06- - BMP Order Info: 2497-11 Order Date: 03/09/25 Order Info: 2275-11 - RONALD Result Comment: Bord kxheui=334-954 mg/dL Higher Svve=790 mg/dL or greater Performed By: #### L [id number] #### [facility] [address] [place], [address] Cholesterol in VLDL [Mass/Vol] 61 mg/dL High 5-40 [facility] Comment on above: Order Comment: Order Date: 03/06/25 Order Info: 666-08 - BMP Order Info: 2497-11 Order Date: 03/09/25 Order Info: 2275-11 - RONALD Performed By: #### L [id number] #### [facility] [address] [place], [address] Triglyceride [Mass/Vol] 307 mg/dL High [facility] Comment on above: Order Comment: Order Date: 03/06/25 Order Info: 06- - BMP Order Info: 2497-11 Order Date: 03/09/25 Order Info: 2275-11 - RONALD Result Comment: The drugs N-Acetylcysteine and Metamizole may falsely depress this assay. Normal range: <150 mg/dL Borderline High: 150-199 mg/dL High: 200-499 mg/dL Very High: >500 mg/dL Performed By: #### L [id number] #### [facility] [address] [place], [address] MCV (mean corpuscular volume ) determinationOrdered By: Tyrell Parisi on 03-05-2025 MCV (RBC) [Entitic vol] 72.3 fL Low 81-99 [facility] Magnesiumon 03-05-2025 Magnesium [Mass/Vol] 1.8 mg/dL Normal 1.5-2.2 [facility] Comment on above: Order Comment: Order Date: 03/06/25 Order Info: 0667- - BMP Order Info: 2498-4 - FE Order Date: 03/09/25 Order Info: 2276-4 - RONALD Performed By: #### L [id number] #### [facility] [address] [place], [place], [address] Magnesium measurement (mass/ volume)Ordered By: Tyrell Parisi on 03-05-2025 Magnesium (Unsp spec) [Mass/Vol] 1.8 mg/dL 1.5-2.2 [facility] Mean corpuscular hemoglobin (MCH) determinationOrdered By: Tyrell Parisi on 03-05-2025 MCH (RBC) [Entitic mass] 22.2 pg Low 27.0-32.0 [facility] Mean corpuscular hemoglobin concentration (MCHC) determinationOrdered By: Tyrell Parisi on 03-05-2025 MCHC (RBC) [Mass/Vol] 30.7 g/dL Low 32-36 [facility] Mean platelet volume determi nationOrdered By: Tyrell Parisi on 03-05-2025 Platelet mean volume (Bld) [Entitic vol] 10.6 fL 6.2-12.0 [facility] Microalb:Creat Ratio,Random URon 03-05-2025 Creatinine [Mass/Vol] 349.00 mg/dL High 28.00-217.00 [facility] Comment on above: Order Comment: Order Date: 03/05/25 Order Info: 08911-5 - MIALB Performed By: #### L 503.0106, L503.6030, L3300.6900, L3300.6820, L503.6550, L502.0250 #### [facility] [address] [place], [place], [address] MALB:CREAT 6.4 mg/g CRE Normal <30 mg/g CRE [facility] Comment on above: Order Comment: Order Date: 03/05/25 Order Info: 20721-2 - MIALB Performed By: #### L 503.0106, L503.6030, L3300.6900, L3300.6820, L503.6550, L502.0250 #### [facility] [address] [place], [address] MICROALBUMIN,UR 22.3 mg/L Normal <20 mg/L [facility] Comment on above: Order Comment: Order Date: 03/05/25 Order Info: 46801-3 - MIALB Performed By: #### L 503.0106, L503.6030, L3300.6900, L3300.6820, L503.6550, L502.0250 #### [facility] [address] [place], [address] Monocyte percentageOrdered B y: Tyrell Parisi on 03-05-2025 Monocytes/100 WBC (Bld) 6.7 % 0-10 [facility] Neutrophil percentageOrdered By: Tyrell Parisi on 03-05-2025 Neutrophils/100 WBC (Bld) 63.9 % 47-70 [facility] No Panel InformationOrdered By: Tyrell Parisi on 03-05-2025 Unsaturated Iron Binding Capacity 392 ug/dL 228-428 [facility] Nucleated red blood cell per centageOrdered By: Tyrell Parisi on 03-05-2025 Nucleated RBC/100 WBC (Bld) [Ratio] 0 % 0-5 [facility] Platelet countOrdered By: Ibeth Parisi on 03-05-2025 Platelets (Bld) [#/Vol] 258 10*3/uL 150-450 [facility] Potassium measurement (mass/ volume)Ordered By: Tyrell Parisi on 03-05-2025 Potassium (Unsp spec) [Mass/Vol] 3.4 mmol/L 3.3-5.1 [facility] RBC Auto (Bld) [#/Vol]Ordere d By: Tyrell Parisi on 03-05-2025 RBC (Bld) [#/Vol] 4.19 10*6/uL Low 4.2-5.4 [facility] Random urine creatinine lizzie urement (mass/volume)Ordered By: Tyrell Parisi on 03-05-2025 Creatinine Unsp time (U) [Mass/Vol] 349.00 mg/dL High 28.00-217.00 [facility] Screening total cholesterol/ high density lipoprotein (HDL) cholesterol ratioOrdered By: Tyrell Parisi on 03-05-2025 Cholesterol.total/Choles terol in HDL [Mass ratio] 3.38 {ratio} [facility] Serum creatinine measurement (mass/volume)Ordered By: Tyrell Parisi on 03-05-2025 Creatinine [Mass/Vol] 0.74 mg/dL 0.70-1.20 [facility] Serum globulin measurementOr dered By: Tyrell Parisi on 03-05-2025 Globulin (S) [Mass/Vol] 2.6 g/dL 2.2-4.2 [facility] Serum glucose measurement (m ass/volume)Ordered By: Tyrell Parisi on 03-05-2025 Glucose [Mass/Vol] 160 mg/dL High 70-99 [facility] Serum or plasma alanine bowles otransferase (ALT) measurementOrdered By: Tyrell Parisi on 03-05-2025 ALT [Catalytic activity/Vol] 9 U/L <35 [facility] Serum or plasma albumin lizzie urement (mass/volume)Ordered By: Tyrell Parisi on 03-05-2025 Albumin [Mass/Vol] 3.8 g/dL 3.5-5.0 [facility] Serum or plasma albumin/glob ulin mass ratioOrdered By: Tyrell Parisi on 03-05-2025 Albumin/Globulin [Mass ratio] 1.4 {ratio} 0.9-2.4 [facility] Serum or plasma alkaline fifi sphatase measurementOrdered By: Tyrell Parisi on 03-05-2025 ALP [Catalytic activity/Vol] 84 U/L 35-104 [facility] Serum or plasma calcium lizzie urement (mass/volume)Ordered By: Tyrell Parisi on 03-05-2025 Calcium [Mass/Vol] 9.0 mg/dL 7.6-11.0 [facility] Serum or plasma cholesterol in HDL measurement (mass/volume)Ordered By: Tyrell Parisi on 03-05-2025 Cholesterol in HDL [Mass/Vol] 39 mg/dL Low >40 [facility] Comment on above: National Cholesterol Education Program (NCEP) guidelines:<40 mg/dL: Low HDL-cholesterol (major risk factor for CHD)>= 60 mg/dL: High HDL-cholesterol (negative risk factor for CHD)HDL-cholesterol is affected by a number of factors, e.g. smoking, exercise, hormones, sex and age. Serum or plasma cholesterol measurement (mass/volume)Ordered By: Tyrell Parisi on 03-05-2025 Cholesterol [Mass/Vol] 131 mg/dL <201 [facility] Comment on above: Cholesterol level, D esirable <200 mg/dLBorderline high cholesterol 200-239 mg/dLHigh cholesterol >=240 mg/dLRecommendations of the NCEP Adult Treatment Panel for the following risk-cutoff thresholds for the [place] population. Serum or plasma ferritin reg surement (mass/volume)Ordered By: Tyrell Parisi on 03-05-2025 Ferritin [Mass/Vol] 7 ng/mL Low 22-378 [facility] Serum or plasma iron saturat ion measurement (mass fraction)Ordered By: Tyrell Parisi on 03-05-2025 Iron saturation [Mass fraction] 5.0 % Low 13-59 [facility] Serum or plasma thyroperoxid ase antibody assay (units/volume)Ordered By: Tyrell Parisi on 03-05-2025 TPO Ab Qn [IU]/mL 0-34 [facility] Comment on above: Performed at: [address] Director: Julio Bonner PhD, Phone: [phone] Serum or plasma urea nitroge n measurement (mass/volume)Ordered By: Tyrell Parisi on 03-05-2025 Urea nitrogen [Mass/Vol] 7 mg/dL 4-19 [facility] Sodium levelOrdered By: Tyrell Parisi on 03-05-2025 Sodium [Moles/Vol] 139 mmol/L 133-145 [facility] T4 Free Directon 03-05-2025 T4 FREE DIRECT 1.20 ng/dL Normal 0.76-1.46 [facility] Comment on above: Order Comment: Order Date: 03/05/25Order Info: 0786-1 - CMPOrder Info: [id number] - LIPIDOrder Info: [id number] - MGOrder Info: 3016-3 - TSHOrder Info: 3024-7 - T4F Performed By: #### L 501.0900, L500.2500, L500.4100, L501.9520, L500.3400 #### [facility] [address] [place], [place], [address] T4 freeOrdered By: Tyrell carl on 03-05-2025 Free T4 [Mass/Vol] 1.20 ng/dL 0.76-1.46 [facility] TSH DL <= 0.005 mIU/L QnOrde red By: Tyrell Parisi on 03-05-2025 TSH Qn 3.230 uIU/mL 0.300-4.200 [facility] Thyroid Stim Hormone (TSH)on 03-05-2025 TSH 3.230 uIU/mL Normal 0.300-4.200 [facility] Comment on above: Order Comment: Order Date: 03/06/25 Order Info: 0667-1 - BMP Order Info: 2498-4 - FE Order Date: 03/09/25 Order Info: 2276-4 - RONALD Performed By: #### L 503.6550 #### [facility] [address] [place], [place], [address] Total proteinOrdered By: Armaan Parisi on 03-05-2025 Protein [Mass/Vol] 6.4 g/dL 5.9-8.4 [facility] Triglycerides measurementOrd ered By: Tyrell Parisi on 03-05-2025 Triglyceride [Mass/Vol] 307 mg/dL High <199 [facility] Comment on above: The drugs N-Acetylcy steine and Metamizole may falsely depress this assay. Normal range: <150 mg/dLBorderline High: 150-199 mg/dLHigh: 200-499 mg/dLVery High: >500 mg/dL Urine albumin measurement [facility] detection limit of 20 mg/L or less (mass/volume)Ordered By: Tyrell Parisi on 03-05-2025 Albumin DL <= 20 mg/L (U) [Mass/Vol] 22.3 mg/L <20 mg/L [facility] Vitamin B12 ser/plasOrdered By: Tyrell Parisi on 03-05-2025 Cobalamin (Vitamin B12) [Mass/Vol] 332 pg/mL 180-914 [facility] White blood cell (WBC) count Ordered By: Tyrell Parisi on 03-05-2025 WBC (Bld) [#/Vol] 5.0 10*3/uL 4.4-11.0 [facility] Anion gap in Serum or Plasma Ordered By: Chelsi Matson on 10-24-2024 Anion gap [Moles/Vol] 13 mmol/L 12-25 [facility] BUN/creatinine ratioOrdered By: Chelsi Matson on 10-24-2024 Urea nitrogen/Creatinine [Mass ratio] 20.1 mg/mg High 06-01 [facility] Basic Metabolic Profile (BMP )on 10-24-2024 BUN/CRE 20.1 RATIO High 06-01 [facility] Comment on above: Performed By: #### L 501.0900, L500.2500, L500.4100, L501.9520, L500.3400 #### [facility] [address] [place], [address] Calcium [Mass/Vol] 9.2 mg/dL Normal 7.6-11.0 [facility] Comment on above: Performed By: #### L 501.0900, L500.2500, L500.4100, L501.9520, L500.3400 #### [facility] [address] [place], [address] Chloride [Moles/Vol] 102 mmol/L Normal 98-108 [facility] Comment on above: Performed By: #### L 501.0900, L500.2500, L500.4100, L501.9520, L500.3400 #### [facility] [address] [place], [address] CO2 [Moles/Vol] 21.2 mmol/L Normal 21.0-32.0 [facility] Comment on above: Performed By: #### L 501.0900, L500.2500, L500.4100, L501.9520, L500.3400 #### [facility] [address] [place], [address] Creatinine [Mass/Vol] 0.74 mg/dL Normal 0.70-1.20 [facility] Comment on above: Performed By: #### L 501.0900, L500.2500, L500.4100, L501.9520, L500.3400 #### [facility] [address] [place], [address] GAP 13 Normal 5-15 [facility] Comment on above: Performed By: #### L 501.0900, L500.2500, L500.4100, L501.9520, L500.3400 #### [facility] [address] [place], [address] GFR/1.73 sq M.predicted among non-blacks MDRD (S/P/Bld) [Vol rate/Area] 94 mL/min/{1.73_m2} Normal >60 [facility] Comment on above: Result Comment: mL/m in/1.73m2 CKD-EPI Creatinine Equation (2020) Performed By: #### L 501.0900, L500.2500, L500.4100, L501.9520, L500.3400 #### [facility] [address] [place], [address] Glucose [Mass/Vol] 160 mg/dL High 70-99 [facility] Comment on above: Performed By: #### L 501.0900, L500.2500, L500.4100, L501.9520, L500.3400 #### [facility] [address] [place], [address] Potassium [Moles/Vol] 3.7 mmol/L Normal 3.3-5.1 [facility] Comment on above: Performed By: #### L 501.0900, L500.2500, L500.4100, L501.9520, L500.3400 #### [facility] [address] [place], [address] Sodium [Moles/Vol] 136 mmol/L Normal 133-145 [facility] Comment on above: Performed By: #### L 501.0900, L500.2500, L500.4100, L501.9520, L500.3400 #### [facility] [address] [place], [address] Urea nitrogen [Mass/Vol] 15 mg/dL Normal 4-19 [facility] Comment on above: Performed By: #### L 501.0900, L500.2500, L500.4100, L501.9520, L500.3400 #### [facility] [address] [place], [address] Bilirubin, totalOrdered By: Chelsi Matson on 10-24-2024 Bilirubin [Mass/Vol] 0.19 mg/dL 0.00-1.30 [facility] Bilirubin.direct [Mass/Vol]O rdered By: Chelsi Matson on 10-24-2024 Direct Bilirubin < 0.08 mg/dL 0.00-0.30 [facility] Calculated very low density lipoprotein (VLDL) cholesterol measurementOrdered By: Chelsi Matson on 10-24-2024 VLDL Cholesterol 58 mg/dL High 5-40 [facility] Carbon dioxide, total [Moles /volume] in Central venous bloodOrdered By: Chelsi Matson on 10-24-2024 CO2 [Moles/Vol] 21.2 mmol/L 21.0-32.0 [facility] Chloride assayOrdered By: Marilu Matson on 10-24-2024 Chloride [Moles/Vol] 102 mmol/L 98-108 [facility] GFR/1.73 sq M.predicted sidney g non-blacks MDRD (S/P/Bld) [Vol rate/Area]Ordered By: Chelsi Matson on 10-24-2024 Estimated GFR (MDRD) Non-Af Amer 94 >60 [facility] Comment on above: mL/min/1.73m2 CKD-EP I Creatinine Equation (2020) LDL calc ser/plasOrdered By: Chelsi Matson on 10-24-2024 LDL Cholesterol, Calculated 78 mg/dL [facility] Comment on above: Zzsizafqob=702-827 m g/dL & Higher Nlpe=658 mg/dL or greater Laboratory - Chemistry and C hemistry - challengeOrdered By: Chelsi Matson on 10-24-2024 AST [Catalytic activity/Vol] 16 U/L <32 [facility] Lipid Profileon 10-24-2024 CHOL:HDL 4.51 Normal [facility] Comment on above: Performed By: #### L 501.0900, L500.2500, L500.4100, L501.9520, L500.3400 #### [facility] [address] [place], [address] Cholesterol [Mass/Vol] 174 mg/dL Normal <=200 [facility] Comment on above: Result Comment: Chol esterol level, Desirable <200 mg/dL Borderline high cholesterol 200-239 mg/dL High cholesterol >=240 mg/dL Recommendations of the NCEP Adult Treatment Panel for the following risk-cutoff thresholds for the [place] population. Performed By: #### L 501.0900, L500.2500, L500.4100, L501.9520, L500.3400 #### [facility] [address] [place], [address] Cholesterol in HDL [Mass/Vol] 39 mg/dL Low [facility] Comment on above: Result Comment: Vero onal Cholesterol Education Program (NCEP) guidelines: <40 mg/dL: Low HDL-cholesterol (major risk factor for CHD) >= 60 mg/dL: High HDL-cholesterol (negative risk factor for CHD) HDL-cholesterol is affected by a number of factors, e.g. smoking, exercise, hormones, sex and age. Performed By: #### L 501.0900, L500.2500, L500.4100, L501.9520, L500.3400 #### [facility] [address] [place], [address] Cholesterol in LDL [Mass/Vol] 78 mg/dL Normal [facility] Comment on above: Result Comment: Bord qicmom=293-979 mg/dL Higher Npdm=394 mg/dL or greater Performed By: #### L 501.0900, L500.2500, L500.4100, L501.9520, L500.3400 #### [facility] [address] [place], [address] Cholesterol in VLDL [Mass/Vol] 58 mg/dL High 5-40 [facility] Comment on above: Performed By: #### L 501.0900, L500.2500, L500.4100, L501.9520, L500.3400 #### [facility] [address] [place], [address] Triglyceride [Mass/Vol] 289 mg/dL High [facility] Comment on above: Result Comment: The drugs N-Acetylcysteine and Metamizole may falsely depress this assay. Normal range: <150 mg/dL Borderline High: 150-199 mg/dL High: 200-499 mg/dL Very High: >500 mg/dL Performed By: #### L 501.0900, L500.2500, L500.4100, L501.9520, L500.3400 #### [facility] [address] [place], [address] Liver Profileon 10-24-2024 Albumin [Mass/Vol] 4.0 g/dL Normal 3.5-5.0 [facility] Comment on above: Performed By: #### L 501.0900, L500.2500, L500.4100, L501.9520, L500.3400 #### [facility] [address] [place], [address] ALK PHOS 91 U/L Normal 35-104 [facility] Comment on above: Performed By: #### L 501.0900, L500.2500, L500.4100, L501.9520, L500.3400 #### [facility] [address] [place], [address] ALT [Catalytic activity/Vol] 12 U/L Normal <=34 [facility] Comment on above: Performed By: #### L 501.0900, L500.2500, L500.4100, L501.9520, L500.3400 #### [facility] [address] [place], [address] AST [Catalytic activity/Vol] 16 U/L Normal <=31 [facility] Comment on above: Performed By: #### L 501.0900, L500.2500, L500.4100, L501.9520, L500.3400 #### [facility] [address] [place], [address] Bilirubin [Mass/Vol] 0.19 mg/dL Normal 0.00-1.30 [facility] Comment on above: Performed By: #### L 501.0900, L500.2500, L500.4100, L501.9520, L500.3400 #### [facility] [address] [place], [address] D BILI < 0.08 Normal 0.00-0.30 [facility] Comment on above: Performed By: #### L 501.0900, L500.2500, L500.4100, L501.9520, L500.3400 #### [facility] [address] [place], [address] Globulin (S) [Mass/Vol] 2.8 g/dL Normal 2.2-4.2 [facility] Comment on above: Performed By: #### L 501.0900, L500.2500, L500.4100, L501.9520, L500.3400 #### [facility] [address] [place], [address] T PROT 6.8 g/dL Normal 5.9-8.4 [facility] Comment on above: Performed By: #### L 501.0900, L500.2500, L500.4100, L501.9520, L500.3400 #### [facility] [address] [place], [address] Potassium (Unsp spec) [Mass/ Vol]Ordered By: Chelsi Matson on 10-24-2024 Potassium [Moles/Vol] 3.7 mmol/L 3.3-5.1 [facility] Protein+Creatinine Ratio,Uri neon 10-24-2024 PROT:CRE RATIO Normal 0-200 [facility] Comment on above: Result Comment: NO Y ELLOW TUBE OR STERILE CUP FOUND FOR TESTING. EMAIL SENT TO LAB STAFF Performed By: #### L 501.0900, L500.2500, L500.4100, L501.9520, L500.3400 #### [facility] [address] [place], [address] PROTEIN,UR.RAN. Normal 0.0-12.0 [facility] Comment on above: Result Comment: NO Y ELLOW TUBE OR STERILE CUP FOUND FOR TESTING. EMAIL SENT TO LAB STAFF Performed By: #### L 501.0900, L500.2500, L500.4100, L501.9520, L500.3400 #### [facility] [address] [place], [address] UR CREAT Normal 28-217 [facility] Comment on above: Result Comment: NO Y ELLOW TUBE OR STERILE CUP FOUND FOR TESTING. EMAIL SENT TO LAB STAFF Performed By: #### L 501.0900, L500.2500, L500.4100, L501.9520, L500.3400 #### [facility] [address] [place], [address] Screening total cholesterol/ high density lipoprotein (HDL) cholesterol ratioOrdered By: Chelsi Matson on 10-24-2024 Cholesterol.total/Choles terol in HDL [Mass ratio] 4.51 {ratio} [facility] Serum creatinine measurement (mass/volume)Ordered By: Chelsi Matson on 10-24-2024 Creatinine [Mass/Vol] 0.74 mg/dL 0.70-1.20 [facility] Serum globulin measurementOr dered By: Chelsi Matson on 10-24-2024 Globulin (S) [Mass/Vol] 2.8 g/dL 2.2-4.2 [facility] Serum glucose measurement (m ass/volume)Ordered By: Chelsi Matson on 10-24-2024 Glucose [Mass/Vol] 160 mg/dL High 70-99 [facility] Serum or plasma alanine bowles otransferase (ALT) measurementOrdered By: Chelsi Matson on 10-24-2024 ALT [Catalytic activity/Vol] 12 U/L <35 [facility] Serum or plasma albumin lizzie urement (mass/volume)Ordered By: Chelsi Matson on 10-24-2024 Albumin [Mass/Vol] 4.0 g/dL 3.5-5.0 [facility] Serum or plasma alkaline fifi sphatase measurementOrdered By: Chelsi Matson on 10-24-2024 ALP [Catalytic activity/Vol] 91 U/L 35-104 [facility] Serum or plasma calcium lizzie urement (mass/volume)Ordered By: Chelsi Matson on 10-24-2024 Calcium [Mass/Vol] 9.2 mg/dL 7.6-11.0 [facility] Serum or plasma cholesterol in HDL measurement (mass/volume)Ordered By: Chelsi Matson on 10-24-2024 Cholesterol in HDL [Mass/Vol] 39 mg/dL Low >40 [facility] Comment on above: National Cholesterol Education Program (NCEP) guidelines:<40 mg/dL: Low HDL-cholesterol (major risk factor for CHD)>= 60 mg/dL: High HDL-cholesterol (negative risk factor for CHD)HDL-cholesterol is affected by a number of factors, e.g. smoking, exercise, hormones, sex and age. Serum or plasma cholesterol measurement (mass/volume)Ordered By: Chelsi Matson on 10-24-2024 Cholesterol [Mass/Vol] 174 mg/dL <201 [facility] Comment on above: Cholesterol level, D esirable <200 mg/dLBorderline high cholesterol 200-239 mg/dLHigh cholesterol >=240 mg/dLRecommendations of the NCEP Adult Treatment Panel for the following risk-cutoff thresholds for the [place] population. Serum or plasma urea nitroge n measurement (mass/volume)Ordered By: Chelsi Matson on 10-24-2024 Urea nitrogen [Mass/Vol] 15 mg/dL 4-19 [facility] Sodium levelOrdered By: Chelsi Matson on 10-24-2024 Sodium [Moles/Vol] 136 mmol/L 133-145 [facility] TSH DL <= 0.005 mIU/L QnOrde red By: Chelsi Matson on 10-24-2024 Thyroid Stimulating Hormone (TSH) 2.050 uIU/mL 0.300-4.200 [facility] Thyroid Stim Hormone (TSH)on 10-24-2024 TSH 2.050 uIU/mL Normal 0.300-4.200 [facility] Comment on above: Performed By: #### L 501.0900, L500.2500, L500.4100, L501.9520, L500.3400 #### [facility] [address] [place], [place], [id number] Total proteinOrdered By: Chelsi Matson on 10-24-2024 Protein [Mass/Vol] 6.8 g/dL 5.9-8.4 [facility] Triglycerides measurementOrd ered By: Chelsi Matson on 10-24-2024 Triglyceride [Mass/Vol] 289 mg/dL High <199 [facility] Comment on above: The drugs N-Acetylcy steine and Metamizole may falsely depress this assay. Normal range: <150 mg/dLBorderline High: 150-199 mg/dLHigh: 200-499 mg/dLVery High: >500 mg/dL CNTHERAPYon 05-27-2024 CNTHERAPY OT/PT/Speech Visit (PTWS) TAMARA QUIÑONES ([id number]) 1970 F Date Time Provider Department 05/27/24 11:30 AM MARK MALAGON PTTOMASA Date Time Provider Department [place] 05/27/2024 11:30 AM [id number] MALAGONoster [place]lin Reason for Visit: PT Discharge [752] Primary Visit Diagnosis:Posterior tibial tendon dysfunction [M76.829] Allergies As of Date: 05/27/2024 (No Known Allergies) Date Reviewed: 02/05/2024 Reviewed by: Helene Miller RN - Fully Assessed Prescriptions as of 05/27/2024 - atorvastatin (LIPITOR) 20 mg tablet Take 20 mg by mouth daily at bedtime. - azelastine 0.1% nasal spray INSTILL 2 SPRAY(S) INTO BOTH NOSTRILS TWICE DAILY FOR 7 DAYS NEEDED FOR CONGESTION AND RUNNY NOSE - cetirizine (ZYRTEC) 10 mg tablet Take 10 mg by mouth once daily as needed for cold/allergy symptoms. - lisinopril-hydroCHLO ROthiazide (ZESTORETIC) 10-12.5 mg per tablet Take 1 tablet by mouth every afternoon. - metFORMIN ER (GLUCOPHAGE XR) 500 mg 24 hr tablet Take 1,000 mg by mouth daily at bedtime. - potassium chloride (K-TAB) 10 mEq tablet Take 1 tablet by mouth every afternoon. - OZEMPIC 0.25 mg or 0.5 mg (2 mg/3 mL) pen Inject 0.5 mg subcutaneously one time a week. Letter Text Normal [facility] CNTHERAPYon 03-31-2024 CNTHERAPY OT/PT/Speech Visit (PTWS) TAMARA QUIÑONES ([id number]) 1970 F Date Time Provider Department 03/31/24 11:15 AM MARK MALAGON Date Time Provider Department Center 03/31/2024 11:15 AM [id number] MALAGON [place] [facility] Reason for Visit: PT Eval [747] Visit Diagnosis:Posterior tibial tendon dysfunction [M76.829] Allergies As of Date: 03/31/2024 (No Known Allergies) Date Reviewed: 02/05/2024 Reviewed by: Helene Miller, LEILANI - Fully Assessed Prescriptions as of 03/31/2024 - atorvastatin (LIPITOR) 20 mg tablet Take 20 mg by mouth daily at bedtime. - azelastine 0.1% nasal spray INSTILL 2 SPRAY(S) INTO BOTH NOSTRILS TWICE DAILY FOR 7 DAYS NEEDED FOR CONGESTION AND RUNNY NOSE - cetirizine (ZYRTEC) 10 mg tablet Take 10 mg by mouth once daily as needed for cold/allergy symptoms. - lisinopril-hydroCHLO ROthiazide (ZESTORETIC) 10-12.5 mg per tablet Take 1 tablet by mouth every afternoon. - metFORMIN ER (GLUCOPHAGE XR) 500 mg 24 hr tablet Take 1,000 mg by mouth daily at bedtime. - potassium chloride (K-TAB) 10 mEq tablet Take 1 tablet by mouth every afternoon. - OZEMPIC 0.25 mg or 0.5 mg (2 mg/3 mL) pen Inject 0.5 mg subcutaneously one time a week. Normal [facility] Breast Limited Unilateralon 03-27-2024 Breast Limited Unilateral [facility] Imaging Services [address] [place] [address] [id number] Breast Limited Unilateral MR#: [id number] Acct: [id number] Name: TAMARA QUIÑONES Rep #: [id number] : 1970 F 53 From: Tapan nova MD PCP: Dr. Chelsi Matson MD Status: REG CLI Study: Breast Limited Unilateral Date of Exam: Exam# [id number] Ordering Dr: Helene Morales A-C [id number] STUDY: ULTRASOUND BREAST - RIGHT REASON FOR EXAM: Female, 53 years old. Patient was scheduled for biopsy. TECHNIQUE: Axial and longitudinal images of the RIGHT breast were performed with a high resolution ultrasound transducer. # OF IMAGES: 7 COMPARISON: None. FINDINGS: RIGHT Breast: The lateral aspect of the right breast was examined with ultrasound. Heterogeneously dense fibroglandular tissue. No suspicious nodules seen for biopsy at this time. US/Breast Limited Unilateral IMPRESSION: No suspicious nodule seen at this time for biopsy. ASSESSMENT CATEGORY: BIRADS Category 2: Benign. A letter regarding these results will be sent to the patient by the facility within 30 days. Electronically Signed: Tapan Alves MD at 14:17 EDT , CC: EDWAR Morales; Dr. Chelsi Matson MD; Dr. Alejandro Solano MD Painter Touch Up: Signed Normal [facility] Basophil percentageOrdered B y: Chelsi Matson on 12-11-2023 Chloride [Moles/Vol] 106 mmol/L 98-107 [facility] Cholesterol [Mass/Vol] 170 mg/dL <200 [facility] Comment on above: <200 mg/dL Desirable 200-240 mg/dL Borderline >240 mg/dL High Risk Glucose [Mass/Vol] 118 mg/dL 74-106 [facility] Comment on above: Fasting Glucose resu lt from 100 to 125 mg/dL suggests IMPAIRED HOMEOSTASIS per A.D.A. criteria. Potassium [Moles/Vol] 3.8 mmol/L 3.5-5.1 [facility] Sodium [Moles/Vol] 138 mmol/L 136-145 [facility] Triglyceride [Mass/Vol] 163 mg/dL <199 [facility] Comment on above: The drugs N-Acetylcy steine and Metamizole may falsely depress this assay.Serum Triglycerides Reference Interval Normal <150 mg/dL Borderline high 150 - 199 mg/dL High 200 - 499 mg/dL Very High > or = 500 mg/dL Laboratory - Chemistry and C hemistry - challengeOrdered By: Chelsi Matson on 12-11-2023 Cholesterol in HDL [Mass/Vol] 41 mg/dL >40 [facility] Comment on above: The drugs N-Acetylcy steine and Metamizole may falsely depress this assay. Reference Range HDL <40 mg/dL Low HDL Cholesterol HDL >or= 60 mg/dL High HDL Cholesterol Cholesterol in LDL [Mass/Vol] 96 mg/dL 0-130 [facility] CO2 [Moles/Vol] 25.0 mmol/L 21.0-32.0 [facility] Urea nitrogen/Creatinine [Mass ratio] 12.4 mg/mg 10-20 [facility] No Panel InformationOrdered By: Chelsi Matson on 12-11-2023 Estimated GFR (MDRD) Amer 85 mL/min >60 [facility] Comment on above: GFR Calc Estimated GFR (MDRD) Non-Af Amer 70 mL/min >60 [facility] Comment on above: Non- GFR Calc VLDL Cholesterol 33 mg/dL 5-40 [facility] Serum or plasma calcium lizzie urement (mass/volume)Ordered By: Chelsi Matson on 12-11-2023 Calcium [Mass/Vol] 9.7 mg/dL 8.5-10.1 [facility] Serum or plasma creatinine m easurement (mass/volume)Ordered By: Chelsi Matson on 12-11-2023 Creatinine [Mass/Vol] 0.89 mg/dL 0.55-1.02 [facility] Comment on above: The validity of the calculated GFR & GFRAA in patients over 70 years has not been determined. Clinical correlation is essential. Serum or plasma urea nitroge n measurement (mass/volume)Ordered By: Chelsi Matson on 12-11-2023 Urea nitrogen [Mass/Vol] 11 mg/dL 7-18 [facility] Thin prep Papanicolaou smear with manual screeningOrdered By: Chelsi Matson on 12-11-2023 Protein (U) [Mass/Vol] 14.1 mg/dL 0.0-11.8 [facility] Thin prep Papanicolaou smear with manual screening 7 5-15 [facility] Urine creatinine measurement (mass/volume)Ordered By: Chelsi Matson on 12-11-2023 Creatinine (U) [Mass/Vol] 172.00 mg/dL NO RANGE EST. [facility] Urine protein/creatinine mas s ratioOrdered By: Chelsi Matson on 12-11-2023 Protein/Creatinine (U) [Mass ratio] 82 mg/g CRE 0-200 [facility] Whole blood hemoglobin A1c/t otal hemoglobin ratio (mass fraction)Ordered By: Chelsi Matson on 12-11-2023 HbA1c (Bld) [Mass fraction] 6.8 % 3.8-5.6 [facility] Comment on above: Normal < 5.7 % Predi abetic 5.7 - 6.4 % Diabetic >or= 6.5 % Please note range changes. Basophil percentageOrdered B y: Alejandro Solano on 08-09-2023 Basophil percentage < 1.0 mg/dL 0.55-1.02 [facility] No Panel InformationOrdered By: Alejandro Solano on 08-09-2023 Bedside Estimated GFR (eGFR) > 60.0000 mL/min >60 [facility] Cervical or vagninal specime n microscopic examination by cytology stain (reported asOrdered By: Chelsi Matson on 04-27-2023 Cytology report Cyto stain Doc (Cvx/Vag) Comment . [facility] Comment on above: The Pap smear is a s creening test designed to aid in thedetection of premalignant and malignant conditions of theuterine cervix. It is not a diagnostic procedure andshould not be used as the sole means of detecting cervicalcancer. Both false-positive and false-negative reports dooccur. Detection in cervical specim en of any of human papilloma virus (HPV) 16, 18, 31, 33,Ordered By: Chelsi Matson on 04-27-2023 HPV 16+18+31+33+35+39+45+51+ 52+56+58+59+66+68 DNA Probe+sig amp Ql (Cvx) Negative Negative [facility] Comment on above: This nucleic acid am plification test detects fourteen high-risk HPV types (16,18,31,33,35,39,45,51,52,56,58,59,66,68)without differentiation.Performed at: [facility] [id number] Director: Keysha Gregory MD, Phone: [phone] at: =[facility] - [facility] [id number] Director: Keysha Gregory MD, Phone: [phone] Laboratory - CytologyOrdered By: Chelsi Matson on 04-27-2023 Sour Bleaching Pleater Cyto stain Nom (Cvx/Vag) [ID] Comment . [facility] Comment on above: Lorena Garcia, Natural Remedy Consultant (ASCP) Laboratory - Miscellaneous t estsOrdered By: Chelsi Matson on 04-27-2023 Service comment (Unsp spec) [Interp] Comment . [facility] Comment on above: This liquid based Th inPrep(R) pap test was screened withthe use of an image guided system. Service comment (Unsp spec) [Interp] . . [facility] No Panel InformationOrdered By: Chelsi Matson on 04-27-2023 Pap Smear QC Review Comment . [facility] Comment on above: Daniel Clarke totechnologist Pathology report final diagnosis Narrative Comment . [facility] Comment on above: NEGATIVE FOR INTRAEP ITHELIAL LESION OR MALIGNANCY.THIS SPECIMEN WAS RESCREENED PART OF OUR MACHINE HOSTLER PROGRAM. Culture, urineOrdered By: Dr Danay Matson on 09-22-2022 Bacteria identified Cx Nom (U) Escherichia coli [facility] Basophil percentageon 2021 Chloride [Moles/Vol] 103 mmol/L 98-107 [facility] Work Phone: Cholesterol [Mass/Vol] 139 mg/dL <200 [facility] Work Phone: Comment on above: <200 mg/dL Desirable 200-240 mg/dL Borderline >240 mg/dL High Risk Glucose [Mass/Vol] 256 mg/dL 74-106 [facility] Work Phone: Comment on above: Glucose result great er than or equal to 200 mg/dLsuggests DIABETES MELLITUS per A.D.A. criteria. Potassium [Moles/Vol] 3.8 mmol/L 3.5-5.1 [facility] Work Phone: Sodium [Moles/Vol] 136 mmol/L 136-145 [facility] Work Phone: Triglyceride [Mass/Vol] 279 mg/dL <199 [facility] Work Phone: Comment on above: The drugs N-Acetylcy steine and Metamizole may falsely depress this assay.Serum Triglycerides Reference Interval Normal <150 mg/dL Borderline high 150 - 199 mg/dL High 200 - 499 mg/dL Very High > or = 500 mg/dL Laboratory - Chemistry and C hemistry - challengeon 04-05-2022 ALT [Catalytic activity/Vol] 20 U/L 13-56 [facility] Work Phone: CO2 [Moles/Vol] 26.0 mmol/L 21.0-32.0 [facility] Work Phone: Urea nitrogen/Creatinine [Mass ratio] 14.2 mg/mg 10-20 [facility] Work Phone: No Panel Informationon 04-05 Estimated GFR (MDRD) Amer 100 mL/min >60 [facility] Work Phone: Comment on above: GFR Calc Estimated GFR (MDRD) Non-Af Amer 83 mL/min >60 [facility] Work Phone: Comment on above: Non- GFR Calc Urine Microalbumin/Creatinine Ratio 15.8 mg/g CRE <30 [facility] Work Phone: Serum or plasma calcium lizzie urement (mass/volume)on 04-05-2022 Calcium [Mass/Vol] 9.5 mg/dL 8.5-10.1 [facility] Work Phone: Serum or plasma cholesterol in HDL measurement (mass/volume)on 04-05-2022 Cholesterol in HDL [Mass/Vol] 36 mg/dL >40 [facility] Work Phone: Comment on above: The drugs N-Acetylcy steine and Metamizole may falsely depress this assay. Reference Range HDL <40 mg/dL Low HDL Cholesterol HDL >or= 60 mg/dL High HDL Cholesterol Serum or plasma cholesterol in VLDL measurement (mass/volume)on 04-05-2022 Cholesterol in VLDL [Mass/Vol] 56 mg/dL 5-40 [facility] Work Phone: Serum or plasma creatinine m easurement (mass/volume)on 04-05-2022 Creatinine [Mass/Vol] 0.77 mg/dL 0.55-1.02 [facility] Work Phone: Comment on above: The validity of the calculated GFR & GFRAA in patients over 70 years has not been determined. Clinical correlation is essential. Serum or plasma low density lipoprotein (LDL) cholesterol measurement (mass/volume)on 04-05-2022 Cholesterol in LDL [Mass/Vol] 47 mg/dL 0-130 [facility] Work Phone: Serum or plasma urea nitroge n measurement (mass/volume)on 04-05-2022 Urea nitrogen [Mass/Vol] 11 mg/dL 7-18 [facility] Work Phone: Thin prep Papanicolaou smear with manual screeningon 04-05-2022 Thin prep Papanicolaou smear with manual screening 10 U/L 15-37 [facility] Work Phone: Thin prep Papanicolaou smear with manual screening 7 5-15 [facility] Work Phone: Thin prep Papanicolaou smear with manual screening 44.6 mg/L NO RANGE EST. [facility] Work Phone: Urine creatinine measurement (mass/volume)on 04-05-2022 Creatinine (U) [Mass/Vol] 283.00 mg/dL NO RANGE EST. [facility] Work Phone: Vital Signs Date Time Vital Sign Value Performing Clinician Faci lity 07-16-2023 12:20-0500 Body height 162.[address] Chelsi Matson Work Phone: [facility] 07-16-2023 12:20-0500 Body mass index (BMI) [Ratio] 34.3 kg/m2 Dr. Chelsi Matson Work Phone: [facility] 07-16-2023 12:20-0500 Body temperature 98.2 [degF] Dr. Chelsi Matson Work Phone: [facility] 07-16-2023 12:20-0500 Body weight 90.[address] Chelsi Matson Work Phone: [facility] 07-16-2023 12:20-0500 Diastolic blood pressure 94 mm[Hg] Dr. Chelsi Matson Work Phone: [facility] 07-16-2023 12:20-0500 Heart rate 80 /min Dr. Chelsi Matson Work Phone: [facility] 07-16-2023 12:20-0500 Respiratory rate 18 /min Dr. Chelsi Matson Work Phone: [facility] 07-16-2023 12:20-0500 SaO2% (BldA) [Mass fraction] 100 % Dr. Chelsi Matson Work Phone: [facility] 07-16-2023 12:20-0500 Systolic blood pressure 140 mm[Hg] Dr. Chelsi Matson Work Phone: [facility] Encounters Encounter Date Encounter Type Care Provider Facility Start: 03-26-2025 ambulatory Tyrell Parisi Facilit y:[facility] Start: 03-25-2025 ambulatory Tyrell Parisi Facilit y:[facility] Start: 03-06-2025 End: 03-06-2025 ambulatory Makr Golias PT Work Phone: [facility] Comment on above: Posterior tibial ten don dysfunction (Primary Dx) Start: 03-05-2025 End: 03-05-[address] Tyrell Parisi MD Work Phone: -Laboratory [facility] Start: 03-05-2025 End: 03-05-[address] Tyrell Parisi MD -Laboratory [facility] Start: 03-05-2025 End: 03-05-2025 ambulatory Tyrell Parisi Facility:[facility] Start: 10-24-2024 End: 10-24-[address] Chelsi Matson MD Work Phone: [facility] Work Phone: Start: 10-24-2024 End: 10-24-[address] Chelsi Matson MD -Laboratory, [facility] Start: 10-24-2024 End: 10-24-2024 ambulatory Chelsi Matson Facility:[facility] Start: 07-04-2024 ambulatory [facility] José Migueli lity:[facility] Start: 05-27-2024 End: 05-27-2024 ambulatory Mark [employer] PT Work Phone: [facility] Comment on above: Posterior tibial ten don dysfunction (Primary Dx) Start: 03-31-2024 End: 03-31-2024 ambulatory Mark Golias PT Work Phone: [facility] Comment on above: Posterior tibial ten don dysfunction Start: 03-27-2024 End: 03-[facility] Start: 02-05-2024 End: 02-05-2024 Subsequent hospital visit by physician Xr [facility] Work Phone: Radiology Comment on above: Posterior tibial ten don dysfunction [M76.829] Start: 02-05-2024 End: 02-05-2024 Patient encounter procedure Rito Jasmine Work Phone: Podiatry Comment on above: Posterior tibial ten don dysfunction (Primary Dx); Neuroma Start: 01-30-2024 Telephone encounter Rito Jimenez Work Phone: Podiatry Start: 12-11-2023 End: 12-11-2023 ambulatory [facility] Work Phone: Start: 12-11-2023 End: 12-11-2023 Patient encounter procedure [facility] Start: 08-09-2023 End: 08-09-[address] Chelsi Matson Work Phone: [facility] Work Phone: Start: 08-09-2023 End: 08-09-[address] Chelsi Matson Work Phone: [facility] Work Phone: Start: 07-16-2023 End: 07-16-[address] Chelsi Matson Work Phone: [facility] Work Phone: Start: 07-12-2023 End: 07-12-[address] Chelsi Matson Work Phone: [facility] Work Phone: Start: 07-12-2023 End: 07-12-[address] Chelsi Matson Work Phone: [facility] Work Phone: Start: 07-03-2023 End: 07-03-2023 ambulatory [facility] Work Phone: Start: 07-03-2023 End: 07-03-2023 Patient encounter procedure [facility] Work Phone: Start: 04-27-2023 End: 04-27-2023 ambulatory [facility] Work Phone: Start: 04-27-2023 End: 04-27-2023 Patient encounter procedure [facility]Laboratory, Specimen Work Phone: Start: 03-12-2023 End: 03-12-2023 ambulatory [facility] Work Phone: Start: 03-12-2023 End: 03-12-2023 Discharged Recurring [facility] Work Phone: Start: 09-20-2022 End: 09-20-2022 ambulatory [facility] Work Phone: Start: 09-20-2022 End: 09-20-2022 Patient encounter procedure [facility]Laboratory, Specimen Start: 04-24-2022 End: 04-24-2022 ambulatory [facility] Work Phone: Start: 04-24-2022 End: 04-24-2022 Patient encounter procedure [facility] Start: 04-05-2022 End: 04-05-2022 ambulatory [facility] Work Phone: Start: 04-05-2022 End: 04-05-2022 Patient encounter procedure [facility], [facility] Procedures Date Procedure Procedure Detail Performing Clinician Start: 03-05-[address] Tyrell Parisi MD Work Phone: Comment on above: According to the [facility] [employer] of Clinical [employer]ochemistry,the reference interval for Thyroglobulin (TG) should berelated to euthyroid patients and not for patients whounderwent thyroidectomy. TG reference intervals for thesepatients depend on the residual mass of the thyroid tissueleft after surgery. Establishing a post-operative baselineis recommended. The assay limit of quantitation is 0.1ng/mLThyroglobulin measured by [employer] Start: 03-05-[address] Tyrell Parisi MD Work Phone: Comment on above: Thyroglobulin Antibo dy measured by Tommie CoulterMethodologyIt should be noted that the presence of thyroglobulinantibodies may not be pathogenic nor diagnostic, especiallyat very low levels. The assay business law teacher has found thatfour percent of individuals without evidence of thyroiddisease or autoimmunity will have positive TgAb levels upto 4 IU/mL. Start: 03-05-2025 Total iron binding c apacity measurement Dr. Tyrell Parisi MD Work Phone: Start: 03-05-2025 Urine microalbumin/c reatinine ratio measurement Dr. Tyrell Parisi MD Work Phone: Start: 07-12-[address] Chelsi Matson Work Phone: Start: 07-03-2023 Screening mammography Start: 04-24-2022 Screening mammography Bacteria identified in Urine by Culture Urine culture Plan of Treatment Date Care Activity Detail Author Start: 05-19-2029 Urine microalbumin profile DTaP,Tdap,Td Vaccine (2 - Td or Tdap) [facility] Start: 04-13-2025 Influenza vaccination Influenza Vacc ine (#1) [facility] Start: 04-13-2024 Covid-19 Vaccine () Covid-19 Vaccine () [facility] Start: 04-13-2024 Influenza vaccination C [facility] Start: 03-03-2024 End: 03-03-2024 ambulatory 03/03/2024 9:00 AM EDT OT/PT/Speech Visit [facility] [address] [place] [address] Moncho Sahni PT Posterior tibial tendon dysfunction [M76.829] [facility] Comment on above: Posterior tibial ten don dysfunction [M76.829] Start: 02-05-2024 End: 02-05-2024 Patient encounter procedure 02/05/2024 3:30 PM EDT Office Visit Podiatry [address] [place], [place] [id number] Rito Jasmine [address] [place] [address] plantar facsiitis possibly Podiatry Comment on above: plantar facsiitis po ssibly Start: 08-13-2023 Behavioral Health Screening Behavioral Health Screening [facility] Start: 08-09-2023 MRI of bilateral breasts with contrast Breast Bilateral W/O and W [facility] Start: 04-13-2023 Covid-19 Vaccine () Covid-19 Vaccine () [facility] Start: 04-13-2023 Covid-19 Vaccine ( season) Covid-19 Vaccine ( season) [facility] Start: 2018 Pneumococcal Vaccine : 50+ (1 of 1 - PCV) Pneumococcal Vaccine: 50+ (1 of 1 - PCV) [facility] Start: 2018 Shingrix Vaccine (1 of 2) Shingrix Vaccine (1 of 2) [facility] Start: 2013 Diabetes Screening Diabetes Screenin g [facility] Start: 2013 Lipid panel Lipid Screening [facility] Start: 2013 Screening for malign ant neoplasm of colon [facility] Start: 2008 Screening for malign ant neoplasm of breast Mammogram Screening [facility] Start: 1989 Screening for malign ant neoplasm of cervix Cervical Cancer Screening [facility] Start: 1987 Hepatitis B Vaccine (1 of 3 - 19+ 3-dose series) Hepatitis B Vaccine (1 of 3 - 19+ 3-dose series) [facility] Start: 1987 Urine microalbumin profile DTaP,Tdap,Td Vaccine (1 - Tdap) [facility] Start: 1986 Anxiety Screening Anxiety Screening [facility] Start: 1986 Depression Screening Depression Scre ening [facility] Start: 1986 Hepatitis C screening Hepatitis C Sc reening [facility] Start: 1986 HIV screening HIV Screening [facility] MR Juan perez [facility] Path report.final Dx Spec [facility] End: 03-06-2025 XR Foot - bilateral AP and Lateral and oblique XR FOOT GENERAL 3V AP/LAT/OBL BILATERAL Radiology Routine Posterior tibial tendon dysfunction 1 Occurrences starting 02/05/2024 until 03/06/2025 [facility] Work Phone: Comment on above: 1 Occurrences starti ng 02/05/2024 until 03/06/2025 XR Foot - bilateral AP and Lateral and oblique XR FOOT GENERAL 3V AP/LAT/OBL BILATERAL Radiology Routine Posterior tibial tendon dysfunction 02/05/2024 4:15 PM EDT [facility] Immunizations Immunization Date Immunization Notes Care Provider Toño jacobo 06-01-2021 influenza virus vacc ine, unspecified formulation Rito Jasmine Work Phone: [facility] Payers Date Payer Category Payer Self-pay [id number] 2018 Private Health Insurance [id number] 2018 Private Health Insurance [id number] Private Health Insurance [employer] [id number] Self-pay [id number] Unknown [id number] Unknown [id number] Unknown [id number] Unknown [id number] Unknown [id number] Unknown [id number] Social History Date Type Detail Facility Start: 09-17-2020 End: 07-16-2023 Tobacco smoking status ALIS Unknown if ever smoked [facility] Start: 1970 Sex Assigned At Female W [facility] Start: 07-16-2023 End: 02-05-2024 Tobacco smoking status ALIS Never smoked tobacco [facility] History of tobacco use Passive smoker [facility] Start: 02-05-2024 Tobacco use and exposure Smokeless tobacco non-user [facility] Start: 02-05-2024 Alcohol intake Current drinke r of alcohol (finding) [facility] Start: 02-05-2024 End: 05-27-2024 History of Social function [facility] Start: 02-05-2024 End: 05-27-2024 Tobacco use panel [facility] Start: 02-05-2024 Alcohol Comment Rare [facility] Start: 1970 Sex Assigned At Not on file C [facility] National Score (1-100), lower number is lower risk 35 [facility] Start: 11-04-2024 Sex Female (finding) [facility] [facility] Medical Equipment Procedure Code Equipment Code Equipment Original Text Equipment Identifier Dates Total cholecystectomy with exploration of common bile duct CLIP,HEMOLOCK MED WECK FDA Start: 09-22-2020 Total cholecystectomy with exploration of common bile duct CLIP,HEMOLOCK MED WECK FDA Start: 09-22-2020 Total cholecystectomy with exploration of common bile duct CLIP,HEMOLOCK MED WECK FDA Start: 09-22-2020 Total cholecystectomy with exploration of common bile duct CLIP,HEMOLOCK MED WECK FDA Start: 09-22-2020 Total cholecystectomy with exploration of common bile duct DRESSING,FIBRILLA R 1X2 1960 FDA Start: 09-22-2020 Total cholecystectomy with exploration of common bile duct CLIP,HEMOLOCK MED WECK FDA Start: 09-22-2020 Total cholecystectomy with exploration of common bile duct CLIP,HEMOLOCK MED WECK FDA Start: 09-22-2020 Total cholecystectomy with exploration of common bile duct CLIP,HEMROSARIO MED WECK FDA Start: 09-22-2020 Total cholecystectomy with exploration of common bile duct CLIP,HEMOLOCK MED WECK FDA Start: 09-22-2020 Total cholecystectomy with exploration of common bile duct DRESSING,FIBRILLA R 1X2 1 FDA Start: 09-22-2020 Total cholecystectomy with exploration of common bile duct CLIP,HEMOLOCK MED WECK FDA Start: 09-22-2020 Total cholecystectomy with exploration of common bile duct CLIP,HEMOLOCK MED WECK FDA Start: 09-22-2020 Total cholecystectomy with exploration of common bile duct CLIP,HEMOLOCK MED WECK FDA Start: 09-22-2020 Total cholecystectomy with exploration of common bile duct CLIP,HEMOLOCK MED WECK FDA Start: 09-22-2020 Total cholecystectomy with exploration of common bile duct DRESSING,FIBRILLA R 1X2 1 FDA Start: 09-22-2020 Total cholecystectomy with exploration of common bile duct CLIP,HEMOLOCK MED WECK FDA Start: 09-22-2020 Total cholecystectomy with exploration of common bile duct CLIP,HEMOLOCK MED WECK FDA Start: 09-22-2020 Total cholecystectomy with exploration of common bile duct CLIP,HEMOLOCK MED WECK FDA Start: 09-22-2020 Total cholecystectomy with exploration of common bile duct CLIP,HEMOLOCK MED WECK FDA Start: 09-22-2020 Total cholecystectomy with exploration of common bile duct DRESSING,FIBRILLA R 1X2 1960 FDA Start: 09-22-2020 Total cholecystectomy with exploration of common bile duct CLIP,HEMOLOCK MED WECK FDA Start: 09-22-2020 Total cholecystectomy with exploration of common bile duct CLIP,HEMOLOCK MED WECK FDA Start: 09-22-2020 Total cholecystectomy with exploration of common bile duct CLIP,HEMOLOCK MED WECK FDA Start: 09-22-2020 Total cholecystectomy with exploration of common bile duct CLIP,HEMOLOCK MED WECK FDA Start: 09-22-2020 Total cholecystectomy with exploration of common bile duct DRESSING,FIBRILLA R 1X2 1960 FDA Start: 09-22-2020 Total cholecystectomy with exploration of common bile duct CLIP,HEMOLOCK MED WECK FDA Start: 09-22-2020 Total cholecystectomy with exploration of common bile duct CLIP,HEMOLOCK MED WECK FDA Start: 09-22-2020 Total cholecystectomy with exploration of common bile duct CLIP,HEMOLOCK MED WECK FDA Start: 09-22-2020 Total cholecystectomy with exploration of common bile duct CLIP,HEMOLOCK MED WECK FDA Start: 09-22-2020 Total cholecystectomy with exploration of common bile duct DRESSING,FIBRILLA R 1X2 1960 FDA Start: 09-22-2020 Total cholecystectomy with exploration of common bile duct CLIP,HEMOLOCK MED WECK FDA Start: 09-22-2020 Total cholecystectomy with exploration of common bile duct CLIP,HEMOLOCK MED WECK FDA Start: 09-22-2020 Total cholecystectomy with exploration of common bile duct CLIP,HEMOLOCK MED WECK FDA Start: 09-22-2020 Total cholecystectomy with exploration of common bile duct CLIP,HEMOLOCK MED WECK FDA Start: 09-22-2020 Total cholecystectomy with exploration of common bile duct DRESSING,FIBRILLA R 1X2 1960 FDA Start: 09-22-2020 Total cholecystectomy with exploration of common bile duct CLIP,HEMOLOCK MED WECK FDA Start: 09-22-2020 Total cholecystectomy with exploration of common bile duct CLIP,HEMOLOCK MED WECK FDA Start: 09-22-2020 Total cholecystectomy with exploration of common bile duct CLIP,HEMOLOCK MED WECK FDA Start: 09-22-2020 Total cholecystectomy with exploration of common bile duct CLIP,HEMOLOCK MED WECK FDA Start: 09-22-2020 Total cholecystectomy with exploration of common bile duct DRESSING,FIBRILLA R 1X2 1960 FDA Start: 09-22-2020 Total cholecystectomy with exploration of common bile duct CLIP,HEMOLOCK COLLIN WECK FDA Start: 09-22-2020 Total cholecystectomy with exploration of common bile duct CLIP,HEMOLOCK MED WECK FDA Start: 09-22-2020 Total cholecystectomy with exploration of common bile duct CLIP,HEMOLOCK COLLIN WECK FDA Start: 09-22-2020 Total cholecystectomy with exploration of common bile duct CLIP,HEMOLOJONATHAN POLANCO WECK FDA Start: 09-22-2020 Total cholecystectomy with exploration of common bile duct DRESSING,FIBRILLA R 1X2 1960 FDA Start: 09-22-2020 Total cholecystectomy with exploration of common bile duct CLIP,ALLYSON MENDES FDA Start: 09-22-2020 Total cholecystectomy with exploration of common bile duct CLIP,HEMOLOJONATHAN POLANCO WECK FDA Start: 09-22-2020 Total cholecystectomy with exploration of common bile duct CLIP,HEMOLOJONATHAN ALEXANDERCK FDA Start: 09-22-2020 Total cholecystectomy with exploration of common bile duct CLIP,HEMOLOJONATHAN POLANCO WECK FDA Start: 09-22-2020 Total cholecystectomy with exploration of common bile duct DRESSING,FIBRILLA R 1X2 1960 FDA Start: 09-22-2020 Total cholecystectomy with exploration of common bile duct CLIP,HEMOLOJONATHAN POLANCO WECK FDA Start: 09-22-2020 Total cholecystectomy with exploration of common bile duct CLIP,HEMOLOCK MED WECK FDA Start: 09-22-2020 Total cholecystectomy with exploration of common bile duct CLIP,HEMOLOCK MED WECK FDA Start: 09-22-2020 Total cholecystectomy with exploration of common bile duct CLIP,HEMOLOCK MED WECK FDA Start: 09-22-2020 Total cholecystectomy with exploration of common bile duct DRESSING,FIBRILLA R 1X2 1 FDA Start: 09-22-2020 Clinical Notes 04-27-2023 to 03-06-2025 Mark Malagon PT - 03/06/2025 10:48 AM Mark Amanda PT - 05/27/2024 11:35 AM Mark Amanda PT - 03/31/2024 11:57 AM Diamond Gao RT(R) - 02/05/2024 4:00 PM EDT Note Date & Type Note Facility 03-06-2025 Note HNO ID: [id number] Author: MARK MALAGON PT Service: ? 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 Equipment Owned: custom foot orthotics DME Delivery: The fit of orthotics was assessed with pt standing, with and without shoes. The comfort of orthotics was assessed with pt standing and walking with orthotics in shoes. Pt denied any rubbing or pinching and felt that fit of custom orthotics was correct. Contact information for this therapist was provided to patient. Custom biomechanical foot orthotics with serial number: #[id number] and #[id number](met pad removal) were issued to patient and proof of receipt form signed by pt and therapist. All specifications for custom foot orthotics can be found in orthotic evaluation visit note. Planned Interventions: Follow up as needed for brace fitting/issues. Billing:[facility]: Equipment: [id number] x2 pair of custom foot orthotics No charge for time. 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 Equipment Owned: custom foot orthotics DME Delivery: The fit of orthotics was assessed with pt standing, with and without shoes. The comfort of orthotics was assessed with pt standing and walking with orthotics in shoes. Pt denied any rubbing or pinching and felt that fit of custom orthotics was correct. Contact information for this therapist was provided to patient. Custom biomechanical foot orthotics with serial number: #[id number] and #[id number](met pad removal) were issued to patient and proof of receipt form signed by pt and therapist. All specifications for custom foot orthotics can be found in orthotic evaluation visit note. Planned Interventions: Follow up as needed for brace fitting/issues. Billing:[facility]: Equipment: [id number] x2 pair of custom foot orthotics No charge for time. Total time: 10 minutes Mark Malagon PT documented in this encounter [facility] 05-27-2024 Note HNO ID: [id number] Author: MARK MALAGON PT Service: ? 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 Equipment Owned: none DME Delivery: Pt was educated on wear schedule and care of custom foot orthotics. Pt was educated on the option of having orthotics refurbished as needed in the future as long as shell is performing it's intended function well. Pt was educated on approximate cost of refurbishing orthotics and an approximate time frame when this might be necessary. Pt was urged to follow the wear schedule and to call with any questions or concerns. Pt was instructed to start with wearing orthotics one hour the first day and then to add one hour of wear time per day until timers inspector wear is achieved. Pt was educated on how to remove insoles from shoes and then place orthotics in shoes. The fit of orthotics was assessed with pt standing, with and without shoes. The comfort of orthotics was assessed with pt standing and walking with orthotics in shoes. Pt denied any rubbing or pinching and felt that fit of custom orthotics was correct. Contact information for this therapist was provided to patient. Custom biomechanical foot orthotics with serial number: #[id number] were issued to patient and proof of receipt form signed by pt and therapist. All specifications for custom foot orthotics can be found in orthotic evaluation visit note. Planned Interventions: Follow up as needed for brace fitting/issues. 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 Equipment Owned: none DME Delivery: Pt was educated on wear schedule and care of custom foot orthotics. Pt was educated on the option of having orthotics refurbished as needed in the future as long as shell is performing it's intended function well. Pt was educated on approximate cost of refurbishing orthotics and an approximate time frame when this might be necessary. Pt was urged to follow the wear schedule and to call with any questions or concerns. Pt was instructed to start with wearing orthotics one hour the first day and then to add one hour of wear time per day until timers inspector wear is achieved. Pt was educated on how to remove insoles from shoes and then place orthotics in shoes. The fit of orthotics was assessed with pt standing, with and without shoes. The comfort of orthotics was assessed with pt standing and walking with orthotics in shoes. Pt denied any rubbing or pinching and felt that fit of custom orthotics was correct. Contact information for this therapist was provided to patient. Custom biomechanical foot orthotics with serial number: #[id number] were issued to patient and proof of receipt form signed by pt and therapist. All specifications for custom foot orthotics can be found in orthotic evaluation visit note. Planned Interventions: Follow up as needed for brace fitting/issues. Billing:[facility]: Orthotics Management and Training ([id number]): 1:1 time: 20 minutes (1 unit: 8-22 mins) Equipment: [id number] x2 pair of custom foot orthotics Total time: 20 minutes Mark Malagon PT documented in this encounter [facility] 03-31-2024 Note HNO ID: [id number] Author: MARK MALAGON PT Service: ? Author Type: Physical Therapist Type: Progress Notes Filed: 03/31/2024 15:32 Note Text: Episode Visit Count: 1 Therapist That Will Accept/Oversee The Plan Of Care: Mark Malagon PT Start of Care Date: 03/31/24 Onset Date: 03/31/20 Patient Identified by Name and Date of : Yes REHABILITATION AND SPORTS THERAPY PHYSICAL THERAPY EVALUATION PLAN OF CARE: Assessment: Tamara Quiñones presents with chief complaint of B foot pain that interferes with walking, standing, working. She presents with impairments in ADL's, balance, gait, overall function, symptom management, and tissue tenderness. PROMIS? (Patient-Reported Outcomes Measurement Information System) scores were reviewed and identified as a rehabilitation concern. Prognosis for therapy is Excellent due to: current objective clinical presentation, good overall health status, positive past response to therapy, within-session changes, good support system/ coping skills. She will benefit from skilled therapy services to meet the goals established for this plan of care as noted below. Goals for Episode of Care: created on 03/31/24 through 05/05/24 Pt will be educated on proper wear schedule and care of custom biomechanical foot orthotics Pt will be provided with custom biomechanical B foot orthotics that improve foot and ankle biomechanics as intended with proper fit and function. Patient Goals: decrease pain Planned Interventions, Frequency, and Duration: Current Frequency: 1 visit Duration: 1 visit Total Number of Visits Planned: 2 (1 evaluation visit and 1 visit for fitting and pick pulling machine operator) Planned Treatment Interventions: Orthosis / DME, Patient/Family/Caregiver Education, Self-intermediate management ([id number]) PLAN FOR NEXT VISIT: Fitting and pick pulling machine operator of custom foot orthotics Patient demonstrates good understanding of plan of care and treatment. The above goals and plan of care were discussed and agreed upon by patient/family. SUBJECTIVE: Pt reports constant and chronic pain across B forefeet and plantar aspect. She also reports that pain is also located at medial aspect of arches. 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 She reports that past pairs of custom foot orthotics were helpful but she does not have any currently. 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 Recreation / Current Exercise: walking Intake Information: Prescription present Previous Treatment: Orthotics Pain: Pain Pain Level: 8 Pain Location: Foot - Right, Foot - Left Description: Sharp, Tingling, Aching (pins and needles) Frequency: Continuous, Standing, Walking (constant but varies in intensity) Post Treatment Pain Post Treatment Pain Level: No Change PROMIS Scales 03/31/2024 03/03/2024 Higher is Better Phys Func - Score 41 (mild dysfunction) 40 (mild dysfunction) Phys Func - Percentile 18 16 Self-Eff Symptom - Score 41 (Average) 45 (Average) Self-Eff Symptom - Percentile 18 31 T-scores: mean of general population = 50. 5 points is clinically meaningfully difference Percentiles provide an indication of how the patient's score ranks in relation to the general population. Higher percentile rankings indicate better function/quality of life. 50th percentile is the average of the general population and indicates half of respondents had a worse score. OBJECTIVE MEASURES WITH LEVEL OF FUNCTION: Gait Gait Observation: Normal Plantar Callus Pattern: Right:medial aspect of great toe but minimal Left:medial aspect of great toe and worse than R Supine: ROM: Ankle Dorsiflexion: Right: AROM:slightly less than WNL Ankle Dorsiflexion: Left: AROM: slightly less than WNL Calcaneal eversion: Right: WNL Left: WNL Hallux dorsiflexion: Open chain right: >60 left: >60 Alignment: Rest: Medial arch appearance: Right: Low Left:Low Equinus: Right:forefoot Left:forefoot Prone Subtalar Neutral Alignment: Right: Rearfoot:0 degrees Forefoot:8 degrees varus Left: Rearfoot:0 degrees Forefoot:10 degrees varus First Ray Position: Right: normal Left: normal First Ray Mobility: Right: flexibile Left:semi-rigid WEIGHT BEARING: Alignment: Rest: Medial arch appearance: Right: Low Left Low Calcaneal stance position: Right: everted Left everted Knee position: Right: Straight Left Straight Subtalar Neutral: Medial arch appearance: Right Average Left:Average Calcaneal stance position: Right: inverted Left: inverted Forefoot position: Right: off ground Left: off ground Knee position: Right: straight Left straight (more content not included)... [facility] 03-31-2024 History of Presen t illness Narrative Images from the original note were not included. Episode Visit Count: 1 Therapist That Will Accept/Oversee The Plan Of Care: Mark Malagon PT Start of Care Date: 03/31/24 Onset Date: 03/31/20 Patient Identified by Name and Date of : Yes REHABILITATION AND SPORTS THERAPY PHYSICAL THERAPY EVALUATION PLAN OF CARE: Assessment: Tamara Quiñones presents with chief complaint of B foot pain that interferes with walking, standing, working. She presents with impairments in ADL's, balance, gait, overall function, symptom management, and tissue tenderness. PROMIS (Patient-Reported Outcomes Measurement Information System) scores were reviewed and identified as a rehabilitation concern. Prognosis for therapy is Excellent due to: current objective clinical presentation, good overall health status, positive past response to therapy, within-session changes, good support system/ coping skills. She will benefit from skilled therapy services to meet the goals established for this plan of care as noted below. Goals for Episode of Care: created on 03/31/24 through 05/05/24 Pt will be educated on proper wear schedule and care of custom biomechanical foot orthotics Pt will be provided with custom biomechanical B foot orthotics that improve foot and ankle biomechanics as intended with proper fit and function. Patient Goals: decrease pain Planned Interventions, Frequency, and Duration: Current Frequency: 1 visit Duration: 1 visit Total Number of Visits Planned: 2 (1 evaluation visit and 1 visit for fitting and pick pulling machine operator) Planned Treatment Interventions: Orthosis / DME, Patient/Family/Caregiver Education, Self-intermediate management ([id number]) PLAN FOR NEXT VISIT: Fitting and pick pulling machine operator of custom foot orthotics Patient demonstrates good understanding of plan of care and treatment. The above goals and plan of care were discussed and agreed upon by patient/family. SUBJECTIVE: Pt reports constant and chronic pain across B forefeet and plantar aspect. She also reports that pain is also located at medial aspect of arches. 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 She reports that past pairs of custom foot orthotics were helpful but she does not have any currently. 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 Recreation / Current Exercise: walking Intake Information: Prescription present Previous Treatment: Orthotics Pain: Pain Pain Level: 8 Pain Location: Foot - Right, Foot - Left Description: Sharp, Tingling, Aching (pins and needles) Frequency: Continuous, Standing, Walking (constant but varies in intensity) Post Treatment Pain Post Treatment Pain Level: No Change PROMIS Scales 03/31/2024 03/03/2024 Higher is Better Phys Func - Score 41 (mild dysfunction) 40 (mild dysfunction) Phys Func - Percentile 18 16 Self-Eff Symptom - Score 41 (Average) 45 (Average) Self-Eff Symptom - Percentile 18 31 T-scores: mean of general population = 50. 5 points is clinically meaningfully difference Percentiles provide an indication of how the patient's score ranks in relation to the general population. Higher percentile rankings indicate better function/quality of life. 50th percentile is the average of the general population and indicates half of respondents had a worse score. OBJECTIVE MEASURES WITH LEVEL OF FUNCTION: Gait Gait Observation: Normal Plantar Callus Pattern: Right:medial aspect of great toe but minimal Left:medial aspect of great toe and worse than R Supine: ROM: Ankle Dorsiflexion: Right: AROM:slightly less than WNL Ankle Dorsiflexion: Left: AROM: slightly less than WNL Calcaneal eversion: Right: WNL Left: WNL Hallux dorsiflexion: Open chain right: >60 left: >60 Alignment: Rest: Medial arch appearance: Right: Low Left:Low Equinus: Right:forefoot Left:forefoot Prone Subtalar Neutral Alignment: Right: Rearfoot:0 degrees Forefoot:8 degrees varus Left: Rearfoot:0 degrees Forefoot:10 degrees varus First Ray Position: Right: normal Left: normal First Ray Mobility: Right: flexibile Left:semi-rigid WEIGHT BEARING: Alignment: Rest: Medial arch appearance: Right: Low Left Low Calcaneal stance position: Right: everted Left everted Knee position: Right: Straight Left Straight Subtalar Neutral: Medial arch appearance: Right Average Left:Average Calcaneal stance position: Right: inverted Left: inverted Forefoot position: Right: off ground Left: off ground Knee position: Right: straight Left straight Mobility: Hallux dorsiflexion Closed chain: Right: >4 Left >4 Midtarsal Mobility: (navicular drop) Right: norm 6-8mm Left:norm 6-8mm Rearfoot excursion: Right:>6 hyper Left: >6 hyper FUNCTIONAL EVALUATION: Balance(SL): ability/quality Right: increased pronation and unsteady Left: increased pronation and unsteady Balance Test: *Right: SL Balance and squat test was Improved performance with: 6 degree forefoot 0 degree rearfoot wedges *Left: SL Balance and squat test was Improved performance with: 6 degree forefoot 0 degree rearfoot wedges Gait Assessment: Walking: normal Running: not applicable Orthotic Design Request Shoe size: 10. Weight:200 pounds. Plate Type: Functional Orthotic (shell): Sport Carboplast II Graphite: 2 mm Shell Rigidity: Semi-Flexible Plate Specifications: Heel Cup Depth Standard - 12mm, Shell Width Standard Posting: right: 4 degrees for forefoot 2 degrees intrinsic and 2 degrees extrinsic and 0 degrees for rearfoot To vertical left: 4 degrees for forefoot 2 degrees intrinsic and 2 degrees extrinsic and 0 degrees for rearfoot To vertical Additions: Met Pad Right soft 1/8 or Left soft 1/8 Padding: Type: Soft Thickness:1/8 Padding Length:heels to toes Accommodations: none Top Covers: Material: Leatherette - Smoke Hooks Length:to toes Classification of foot type: Compensated forefoot varus Education: Education Learning Preferences: Demonstration, Explanation, Performance, Printed Materials Barriers: None Learning/educational needs: Procedure / Surgery, Lifestyle changes, Plan of Care, Brace Fit, Gait Training Education Provided: Yes, see treatment interventions for education provided Education Provided To: Patient Education Mode/Type: Demonstration, Explanation/Discussion, Literature/Printed Materials Response to Education/Teach Back: States/Identifies, Requires Review/Additional Education TREATMENT: PT Treatment Interventions: Orthotic Mgmt/Train (Initial) Evaluation Orthotics Management and Training: Skilled Intervention: Clinical knowledge and skills required for custom orthotic fabrication and wearing schedule Patient/Family/Caregiver Education: Precautions, purpose and use of orthosis Wearing schedule explained to pt in detail Discussed management of any symptoms related to wearing the orthosis Billing * Evaluation Moderate Complexity: 1 Unit Orthotic Mgmt/Train (Initial) Treatment Minutes: 30 Skilled Treatment Time Minutes (timed and untimed codes): 60 Total Session Time (minutes): 73 Session Start Time : 1122 Session Stop Time : 1235 Mark Malagon PT documented in this encounter [facility] 02-05-2024 History of Presen t illness Narrative Radiology Service Progress Note PATIENT NAME: Tamara Quiñones DATE OF SERVICE: February 05, 2024 TIME: 4:02 PM PATIENT IDENTITY VERIFICATION COMPLETED USING TWO (2) IDENTIFIERS: Name and Date of confirmed by patient verbally. FALL SCREENING: Has the patient had 2 falls in the last year or 1 fall with injury or currently using an Ambulatory Assistive Device (Walker, Cane, Wheelchair, Crutches, etc.)? No PATIENT GENDER DATA: Female. status: : No status: NO. PATIENT RELEVANT IMPLANT DATA REVIEWED: Yes PATIENT PRESENTS WITH AN IMPLANTABLE OR ATTACHED RN REFERRAL: No RADIOLOGY DEPARTMENT: General X-ray: Exam(s) Completed: Lower Extremity X-Ray(s): Foot, Bilateral PERIPHERAL IV DATA: Not applicable SIGNED BY: RT Danish(R) February 05, 2024 4:02 PM documented in this encounter [facility] 02-05-2024 History of Presen t illness Narrative Images from the original note were not included. Consultation requested by Dr. Oconnor for an opinion regarding foot pain. My final recommendations will be communicated back to the requesting physician by way of shared Medical record or letter to requesting physician via US mail. Initial Podiatric Office Visit: Chief Complaint: This 53 year old female who presents with chief complaint:b/l foot pain HPI Patient presents to clinic for evaluation of b/l feet Complains of constant foot pain of both feet. Pain starts in the heels and extends to the ball of her foot Has been present for several years. 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 PAIN EVALUATION 02/05/2024 1525 Pain Level: 9 Pain Location: Other: See Comment bilateral feet Description: Aching;Burning;Shooting;Spasm Duration Amount of Time: 3 Duration Units: Years Frequency: Continuous No results found for: HBA1C PCP: Chelsi Matson MD PAST MEDICAL HISTORY Diagnosis Date Diabetes mellitus (HCC) HTN (hypertension) Mixed hyperlipidemia Current Outpatient Medications Medication Sig atorvastatin (LIPITOR) 20 mg tablet Take 20 mg by mouth daily at bedtime. azelastine 0.1% nasal spray INSTILL 2 SPRAY(S) INTO BOTH NOSTRILS TWICE DAILY FOR 7 DAYS NEEDED FOR CONGESTION AND RUNNY NOSE cetirizine (ZYRTEC) 10 mg tablet Take 10 mg by mouth once daily as needed for cold/allergy symptoms. lisinopril-hydroCHLOROthiazide (ZESTORETIC) 10-12.5 mg per tablet Take 1 tablet by mouth every afternoon. metFORMIN ER (GLUCOPHAGE XR) 500 mg 24 hr tablet Take 1,000 mg by mouth daily at bedtime. potassium chloride (K-TAB) 10 mEq tablet Take 1 tablet by mouth every afternoon. OZEMPIC 0.25 mg or 0.5 mg (2 mg/3 mL) pen Inject 0.5 mg subcutaneously one time a week. No current facility-administered medications for this visit. ALLERGIES No Known Allergies PAST SURGICAL HISTORY Procedure Laterality Date REMOVAL GALLBLADDER No family history on file. Social History Tobacco Use Smoking status: Never Passive exposure: Past Smokeless tobacco: Never Vaping Use Vaping Use: Never used Substance Use Topics Alcohol use: Yes Comment: Rare Drug use: Never REVIEW OF SYSTEMS GENERAL: Negative for Malaise, significant weight loss, fever RESPIRATORY: Negative for cough, wheezing and shortness of breath CARDIOVASCULAR: Negative for chest pain, leg swelling and palpitations GI: Negative for abdominal discomfort, blood in stools or black stools and change in bowel habits : Negative for dysuria, frequency and incontinence MUSCULOSKELETAL: Negative for joint pain or swelling, back pain, and muscle pain. SKIN: Negative for lesions, rash, and itching. HEMATOLOGY/LYMPHOLOGY Negative for prolonged bleeding, bruising easily, and swollen nodes. ENDOCRINE: Negative for cold or heat intolerance, polyuria, polydipsia and goiter. NEURO: negative Physical Exam: Constitutional: Pt is a well developed 53 year old female who is alert, oriented and cooperative Eyes: Following during examination. No redness or drainage. Respiratory: RR normal and nonlabored. Even breathing. No evidence of distress or shortness of breath. Psychology: Patient is engaged during conversation. Normal affect and mood. Does not appear depressed or anxious during encounter. Vascular: Dorsalis pedis and posterior tibial pulses palpable as b/l Capillary Fill time < 5 seconds to digits 1-5 b/l Skin temperature warm to warm proximal to distal b/l Hair growth present to digits Neurological: intact light touch/epicritic sensation - tinel b/l No clear rajwinder sign b/l intact protective sensation no significant neurological deficits Dermatological: Nails 1-5 b/l appear normal. Webspaces clean and dry 1-4 b/l. Skin appears well hydrated and supple. good color, texture, turgor. No open lesions present. No callosities present. Musculoskeletal/Orthopaedic: Patient has pain to palpation of medial arch b/l Foot type is pronated structurally AJ ROM is full with knee extended and flexed 1st MPJ is full when loaded and no pain or crepitus are noted with ROM. MTJ, STJ are full and free of pain and crepitus. +5/5 muscle strength dorsiflexion, plantarflexion, inversion, eversion b/l Radiographs: ordered ASSESSMENT: (M76.829) Posterior tibial tendon dysfunction (primary encounter diagnosis) (D36.10) Neuroma PLAN: 1. History and physical examination performed. 2. Discussed pain in b/l feet. Suspect primary component of pain is related to fallen arches. Will order custom orthotic. I do feel a custom orthotic will provide more support compared to an over the counter device 3. Discussed possible neuroma. No clear rajwinder sign. If pain continues, could consider injection but her pain seems more in the arch so I am not convinced an injection at this time would resolve her pain. If she develops pain more in interspace consider injection 4. Diabetic education discussed with patient. Rito Jasmine DPM Podiatry [address] [facility] [address] Dept: [phone] Dept AMB ROOMING INTAKE FLOWSHEET DATA Risk Screening Do you have concerns about personal safety or safety in the home?: No Pain Pain Level: 9 Pain Location: Other: See Comment (bilateral feet) Description: Aching, Burning, Shooting, Spasm Duration Amount of Time: 3 Duration Units: Years Frequency: Continuous Patient presents with: Left Foot - New, Pain Right Foot - New, Pain Patient presents for bilateral foot pain that has been steady for 3 years and intermittent prior to that for a few years. Pain primarily located to Ball of foot to toes. Pain is worse after being on her feet most days, not as bad in the morning. Nothing has helped the pain. documented in this encounter [facility] 02-01-2024 Telephone encounter Note Second phone call attempt made to ask patient which foot she is being see for the plantar fasciitis to place x-ray order. No answer. [facility] 02-01-2024 Miscellaneous Notes Second phone call attempt made to ask patient which foot she is being see for the plantar fasciitis to place x-ray order. No answer. Patient is scheduled with Dr. Jasmine on 02/05/24 for plantar fasciitis. Phone call to patient to ask laterality. If patient has not had an XR taken of affected foot/feet she will need to get an XR prior to her appointment. documented in this encounter [facility] 01-30-2024 Telephone encounter Note Patient is scheduled with Dr. Jasmine on 02/05/24 for plantar fasciitis. Phone call to patient to ask laterality. If patient has not had an XR taken of affected foot/feet she will need to get an XR prior to her appointment. [facility] 04-27-2023 Note [facility] Pap Smear Specimen Adequacy April 27, 2023 8:15am Comment . Satisfactory for evaluation. Endocervical and/or squamous metaplasticcells (endocervical component) are present. Comment on above: Satisfactory for kiko luation. Endocervical and/or squamous metaplasticcells (endocervical component) are present. 04-27-2023 Note [facility] Pap Smear Specimen Adequacy April 27, 2023 8:15am Comment . Satisfactory for evaluation. Endocervical and/or squamous metaplasticcells (endocervical component) are present. Comment on above: Satisfactory for kiko luation. Endocervical and/or squamous metaplasticcells (endocervical component) are present. 04-27-2023 Note [facility] Pap Smear Specimen Adequacy April 27, 2023 8:15am Comment . Satisfactory for evaluation. Endocervical and/or squamous metaplasticcells (endocervical component) are present. Comment on above: Satisfactory for kiko luation. Endocervical and/or squamous metaplasticcells (endocervical component) are present. Evaluation note No assessment information availa ble [facility] Work Phone: Evaluation note Diagnosis Onset Date Abnormal mammogram of right breast acute [facility] Work Phone: Evaluation note* Diagnosis Posterior tibial tendon dysfunction- Primary Other disorders of synovium, tendon, and bursa Neuroma Other benign neoplasm of connective and other soft tissue of unspecified site [facility] Diagnosis Posterior tibial tendon dysfunction Other disorders of synovium, tendon, and bursa [facility] Diagnosis Posterior tibial tendon dysfunction Other disorders of synovium, tendon, and bursa [facility] Diagnosis Posterior tibial tendon dysfunction- Primary Other disorders of synovium, tendon, and bursa [facility] Diagnosis Posterior tibial tendon dysfunction- Primary Other disorders of synovium, tendon, and bursa documented in this encounter [facility] for referral (narrative)* Diagnostic Procedure Only (Routine) - Closed Specialty Diagnoses / Procedures Referred By Neha t Referred To Contact XR IMAGING Diagnoses Posterior tibial tendon dysfunction Procedures XR FOOT GENERAL 3V AP/LAT/OBL BILATERAL RADEX FOOT COMPLETE MINIMUM 3 VIEWS [address] [place] [address] [place] [address] Referral ID Status Reason Start Date Expiration Date V isits Requested Visits Authorized [id number] Closed Auto-Generate d Referral 02/05/2024 03/06/2025 1 1 * Physical Therapy (Routine) - Authorized Specialty Diagnoses / Procedures Referred By Contac t Referred To Contact [facility] Diagnoses Posterior tibial tendon dysfunction Procedures CONSULT TO PHYSICAL THERAPY PHYSICAL THERAPY EVALUATION HIGH COMPLEX 45 [address] [place] [place] [address] [facility] [place] [address] [place] [address] Referral ID Status Reason Start Date Expiration Date Visits Requested Visits Authorized [id number] Authorized Auto-Generat ed Referral 08/13/2023 08/12/2024 99 99 [facility] for referral (narrative)No reason for referral information availableWSouthwest [facility] Work Phone: Reason for visit Narrative* Diagnostic Procedure Only (Routine) - Closed Specialty Diagnoses / Procedures Referred By Contac t Referred To Contact XR IMAGING Diagnoses Posterior tibial tendon dysfunction Procedures XR FOOT GENERAL 3V AP/LAT/OBL BILATERAL RADEX FOOT COMPLETE MINIMUM 3 VIEWS [address] [place] [address] [place] [address] Referral ID Status Reason Start Date Expiration Date V isits Requested Visits Authorized [id number] Closed Auto-Generate d Referral 02/05/2024 03/06/2025 1 1 [facility] Family History No Family History Records Found Relationship Condition Age at Onset Recorded Date/T betina daughter Asthma Unknown uncle Malignant neoplasm of colon Unknown sister Diabetes mellitus Unknown Advance Directives No Advanced Directives Records Found Advance Directive Response Recorded Date/ Time Living Will No September 17 3:17pm Power of Pulmonologist/Intensivist No September 17, 2020 3:17pm Advance Directive Response Recorded Date/ Time Living Will No September 17 2:17pm Power of Pulmonologist/Intensivist No September 17, 2020 2:17pm Chief Complaint and Reason for Visit Chief Complaint SCREENING Chief Complaint DINING WITH DIABETES Chief Complaint DINING WITH DIABETES SCREENING Chief Complaint SCREENING RIGHT BREAST ABNORMAL MAMMO LUCA 4/BREAST BIOPSY Reason for Visit Abnormal mammogram o f right breast Chief Complaint SCREENING RIGHT BREAST ABNORMAL MAMMO LUCA 4/BREAST BIOPSY RT BREAST IRREGULAR HYPOECHOIC DENSITY Reason for Visit Abnormal mammogram o f right breast Summary Purpose Additional Source Comments Goals (unrecognized section and content) Goals may be documented in a n alternate sectionGoals may be documented in an alternate sectionGoals may be documented in an alternate sectionGoals may be documented in an alternate sectionGoals may be documented in an alternate sectionGoals may be documented in an alternate sectionGoals may be documented in an alternate sectionGoals may be documented in an alternate sectionGoals may be documented in an alternate sectionGoals may be documented in an alternate sectionGoals may be documented in an alternate section Care Teams (unrecognized sec tion and content) Team Status: Active Member Role Status Dates Dr. Chelsi Matson MD Family Provider Active Dr. Chelsi Matson MD Primary Care Provider Active Team Status: Inactive Member Role Status Dates Dr. hCelsi Matson MD Primary Care Provider, Attendin g Provider Active Team Status: Inactive Member Role Status Dates Dr. Chelsi Matson MD Primary Care Provider Active Self Referred Attending Provider Active Team Status: Inactive Member Role Status Dates Dr. Chelsi Matson MD Primary Care Provider, Referrin g Provider Active Dr. Alejandro Solano MD Attending Provider Active Team Status: Inactive Member Role Status Dates Dr. Chelsi Matson MD Primary Care Prov ider, Attending Provider, Referring Provider Active Team Status: Inactive Member Role Status Dates Dr. Chelsi Matson MD Primary Care Provider Active Dr. Alejandro Solano MD Attending Provider, Referr ing Provider Active Oil Treater Relationship Specialty Start Date End Date Chelsi Matson [address] [place] [address] PCP - General Family Medicine 12/20/23 Oil Treater Relationship Specialty Start Date End Date Chelsi Matson [address] [place] [address] PCP - General Family Medicine 12/20/23 Oil Treater Relationship Specialty Start Date End Date Chelsi Matson [address] [place] [address] PCP - General Family Medicine 12/20/23 Oil Treater Relationship Specialty Start Date End Date AustinChelsi pina [address] [place] [address] PCP - General Family Medicine 12/20/23 Team Status: Inactive Member Role Status Dates Dr. Chelsi Matson MD Primary Care Provider Active Start: October 24, 2024 End: October 24, 2024 Dr. Chelsi Matson MD Attending Provider Active Start: October 24, 2024 End: October 24, 2024 Dr. Chelsi Matson MD Referring Provider Active Start: October 24, 2024 End: October 24, 2024 Oil Treater Relationship Specialty Start Date End Date AustinChelsi pina [address] [place] [address] PCP - General Family Medicine 12/20/23 Team Status: Active Member Role/Relationship Status Dates Dr. Chelsi Matson MD Family Provider Active Dr. Tyrell Parisi MD Primary Care Provider Active Team Status: Inactive Member Role/Relationship Status Dates Dr. Tyrell Parisi MD Primary Care Provider Active Start: March 05, 2025 End: March 05, 2025 Dr. Tyrell Parisi MD Attending Provider Active Start: March 05, 2025 End: March 05, 2025 Dr. Tyrell Parisi MD Referring Provider Active Start: March 05, 2025 End: March 05, 2025 Source Comments (unrecognize d section and content) In the event this informatio n is protected by the Federal Confidentiality of Alcohol and Drug Abuse Patient Records regulations: The Federal rules restrict any use of the information to criminally investigate or prosecute any alcohol or drug abuse patient.[facility] the event this information is protected by the Federal Confidentiality of Alcohol and Drug Abuse Patient Records regulations: The Federal rules restrict any use of the information to criminally investigate or prosecute any alcohol or drug abuse patient.[facility] the event this information is protected by the Federal Confidentiality of Alcohol and Drug Abuse Patient Records regulations: The Federal rules restrict any use of the information to criminally investigate or prosecute any alcohol or drug abuse patient.[facility] the event this information is protected by the Federal Confidentiality of Alcohol and Drug Abuse Patient Records regulations: The Federal rules restrict any use of the information to criminally investigate or prosecute any alcohol or drug abuse patient.[facility] the event this information is protected by the Federal Confidentiality of Alcohol and Drug Abuse Patient Records regulations: The Federal rules restrict any use of the information to criminally investigate or prosecute any alcohol or drug abuse patient.[facility] the event this information is protected by the Federal Confidentiality of Alcohol and Drug Abuse Patient Records regulations: The Federal rules restrict any use of the information to criminally investigate or prosecute any alcohol or drug abuse patient.[facility] Reason for Visit (unrecogniz ed section and content) Reason Comments PT Discharge Specialty Diagnoses / Procedures Referred By Contac t Referred To Contact [facility] Diagnoses Posterior tibial tendon dysfunction Procedures CONSULT TO PHYSICAL THERAPY PHYSICAL THERAPY EVALUATION HIGH COMPLEX 45 MINS [address]asmine [address] [place] [address] [facility] [address] [place] [address] Referral ID Status Reason Start Date Expiration Date Visits Requested Visits Authorized [id number] Authorized Auto-Generat ed Referral 08/13/2023 08/12/2024 99 99 Reason Comments New Pain Reason Comments PT Eval INFORMATION SOURCE (unrecogn ized section and content) DATE CREATED AUTHOR 03/07/2025 [facility] DATE CREATED AUTHOR AUTHOR'S CHLOE ALMARAZ 03/26/2025 [facility] FOR RECORDS PERTAINING TO PATIENTS WHO ARE OR HAVE BEEN ENROLLED IN A CHEMICAL DEPENDENCY/SUBSTANCEABUSE PROGRAM, SOME INFORMATION MAY BE OMITTED. This clinical summary was aggregated from multiple sources. Caution should be exercised in using it in the provision of clinical care. This summary normalizes information from multiple sources, and as a consequence, information in this document may materially change the coding, format and clinical context of patient data. In addition, data may be omitted in some cases. CLINICAL DECISIONS SHOULD BE BASED ON THE PRIMARY CLINICAL RECORDS. [facility] [employer] provides no warranty or guarantee of the accuracy or completeness of information in this document.
== END | disposition home or self-care (01) ==
LOC: US 12:12
PROVIDERS: PCP Family Medicine; Referring Provider Family Medicine; Visit Provider Family Medicine
DX: E04.1 Nontoxic single thyroid nodule (principal)
CPT/HCPCS: 76536

== ENCOUNTER → 2025-04-16 | Outpatient (CLI) | payer OTHER, SELFPAY ==
[2025-04-21 08:09] LABS: Immunoglobulin A 223 mg/dL (87-352)
== END | disposition home or self-care (01) ==
LOC: MFPLAB 12:17
PROVIDERS: PCP Family Medicine; Visit Provider Family Medicine
DX: D50.9 Iron deficiency anemia, unspecified (principal)
CPT/HCPCS: 36415; 82784; 83516; 86255

== ENCOUNTER → 2025-07-23 | Outpatient (CLI) | payer OTHER, SELFPAY ==
[2025-07-23 12:30] LABS: Hematocrit 40.2 % (37-47); Hemoglobin 13.6 g/dL (12.0-15.0); Immature Granulocytes Count 0.020 X10^3/uL (0.0-0.0); Mean Corp Hgb Conc 33.8 g/dL (32-36); Mean Corpuscular Volume 81.4 fL (81-99); Mean Platelet Vol. 10.8 fl (6.2-12.0); NRBC Flagged by Analyzer 0 % (0-5); Platelet Count 205 K/mm3 (150-450); RBC Distribution Width CV 13.2 % (11.6-14.6); RBC Distribution Width SD 38.4 fl (35.1-43.9); Red Blood Count 4.94 M/mm3 (4.2-5.4); White Blood Count 4.2 K/mm3 (4.4-11.0)
[2025-07-23 12:51] LABS: AST(SGOT) 20 U/L (<=31); Alanine Aminotransfer ALT/SGPT 28 U/L (<=34); Albumin, Serum 4.3 g/dL (3.5-5.0); Alkaline Phosphatase 106 U/L (35-104); Anion Gap 13 (5-15); BUN 12 mg/dL (4-19); BUN/Creat Ratio 15.7 RATIO (10-20); Calcium,Total 9.4 mg/dL (7.6-11.0); Carbon Dioxide 21.4 mmol/L (21.0-32.0); Chloride 102 mmol/L (98-108); Cholesterol 154 mg/dL (<=200); Ferritin 49 ng/mL (22-378); Globulin 2.7 g/dL (2.2-4.2); Glucose 282 mg/dL (70-99); Low Density Lipoprotein Calc. 81 mg/dL; Potassium 4.0 mmol/L (3.3-5.1); Triglycerides 239 mg/dL; Very Low Density Lipoprotein 48 mg/dL (5-40); cholesterol:hdl ratio screen 4.62
[2025-07-23 13:15] LABS: Iron 63 ug/dL (50-170); Iron Binding Capacity,Total 332 ug/dL (250-450); Iron Binding Capacity,Unsat 269 ug/dL (228-428)
[2025-07-24 17:08] LABS: Immunoglobulin A 216 mg/dL (87-352)
== END | disposition home or self-care (01) ==
LOC: MFPLAB 10:35
PROVIDERS: PCP Family Medicine; Visit Provider Family Medicine
DX: D50.9 Iron deficiency anemia, unspecified (principal); E11.69 Type 2 diabetes mellitus with other specified complication
CPT/HCPCS: 36415; 80053; 80061; 82728; 82784; 83036; 83516; 83540; 83550; 85025; 86255